=== PATIENT | male | born 1945 | race Caucasian/White ===

== ENCOUNTER 2019-03-17 10:12 | Inpatient (IN) ==
[2019-03-17] MEDS ORDERED: CEFEPIME 1,000 MG in SYRINGE 0 ML IV STA (10:26)
[2019-03-17] MEDS ORDERED: SODIUM CHLORIDE 0.9% 1000ML 2,000 ML IV ONE (10:30)
[2019-03-17 10:52] LABS: iSTAT Creatinine 4.6 mg/dl (0.6-1.3); iSTAT Hemoglobin 8.5 g/dl (14.0-18.0); iSTAT Ionized Calcium 1.15 mmol/l (1.12-1.32); iSTAT Potassium 4.6 mEq/L (3.3-5.0)
--- NOTE | 2019-03-17 11:06 | CT Scan Report ---
CT head/brain wo con CT DOSE: HISTORY: Postoperative change mental status. ams recetn surg TECHNIQUE: Multiaxial CT images of the head were performed without the use of intravenous contrast. A dose lowering technique was utilized adhering to the principles of ALARA. Comparison: None. Findings: The paranasal sinuses and mastoid air cells are clear. Findings of 2 tomás holes over the ri ght cerebral convexity. No evidence for drainage catheter. Right subdural hematoma with maximum thick ness of 8 mm. This may be subacute. Slight effacement of the sulci of the right cerebral hemisphere. Slight midline shift to the left of 3 mm. No evidence for parenchymal hemorrhagic component. Impression: 1. Small subacute right subdural hematoma having maximum thickness of 8 mm. 2. Slight effacement of the right cerebral sulci with midline shift to the left of 3 mm. 3. 2 operative burro holes over the right cerebral convexity The above report was generated using voice recognition software. It may contain grammatical, syntax or spelling errors. Electronically signed by: Paresh Dove M.D. 03/17/2019 11:04 AM
[2019-03-17 11:08] LABS: INR 1.1 (0.9-1.1); Partial Thromboplastin Ratio 1.1; Partial Thromboplastin Time 30.8 Seconds (21.0-31.0); Prothrombin Time 10.9 Seconds (9.0-12.0)
--- NOTE | 2019-03-17 11:09 | CT Scan Report ---
CT abd pelvis wo con CT DOSE: 1709.55 mGy.cm HISTORY: Mental status change ams TECHNIQUE: Multiaxial CT images of the abdomen and pelvis were performed without contrast. A dose lo wering technique was utilized adhering to the principles of ALARA. COMPARISON STUDY: None. FINDINGS: Interstitial prominence both lung bases. General configuration of liver spleen and pancreas is unremarkable. No significant gallbladder distention. Kidneys are considered negative for hydronephrosis. There are small exophytic hyperdense cysts involv ing the lower pole both kidneys. Nonobstructive bowel pattern. No free fluid within the pelvic cul-de-sac. The bladder is midline. There is a fat-containing left inguinal hernia. There is no evidence for bowel containment. 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 IMPRESSION: 1. No acute process in the abdomen or pelvis. 2. Minimal incidental findings as noted. 3. 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 The above report was generated using voice recognition software. It may contain grammatical, syntax or spelling errors. Electronically signed by: Paresh Dove M.D. 03/17/2019 11:08 AM
[2019-03-17 11:15] LABS: Albumin Level 2.5 gm/dl (3.4-5.0); BUN Creatinine Ratio 15.9 (10-20); Creatinine Clr Calc Pharmacy 18.4 ml/min; Est GFR (African American) 15.5; Est GFR (Non-African American) 13.4; Potassium 4.5 mmol/L (3.5-5.1)
[2019-03-17 11:16] LABS: Base Excess VBG 0.9 mEq/L; Oxygen Saturation VBG 61.2 %; pH VBG 7.37 (7.36-7.41)
[2019-03-17 11:18] LABS: Albumin Globulin Ratio 0.6 (0.9-2); Bilirubin,Total 0.7 mg/dl (0.2-1); Globulin 4.5 gm/dl (2.5-4.0)
[2019-03-17] MEDS ORDERED: VANCOMYCIN HCL 2,000 MG in SODIUM CHLORIDE 0.9% 500 ML IV ONE (11:21)
[2019-03-17] MEDS ORDERED: VANCOMYCIN CONSULT ACTIVE PRN (11:21)
[2019-03-17 11:29] LABS: Appearance Urine Cloudy (Clear); Bilirubin Urine Negative (Negative); Blood Urine Negative (Negative); Color Urine Yellow; Glucose Urine UA Negative (Negative); Ketones Urine Negative (Negative); Leukocyte Esterase Urine Negative (Negative); Nitrite Urine Negative (Negative); Protein Urine Negative (Negative); Specific Gravity Urine 1.017 (1.000-1.030); Urobilinogen Urine Negative (Negative)
[2019-03-17 11:41] LABS: Hematocrit (blood only) 29.3 % (42-52); Hemoglobin 9.4 g/dL (14.0-18.0); Mean Corpuscular Hgb Conc 32.1 g/dL (32-36); Mean Corpuscular Volume 93.6 fL (80-100); Mean Platelet Volume 10.9 fL (7.4-10.4); Nucleated RBC # (auto) 0.04 K/uL (0-0); Nucleated RBC % (auto) 0.7 %; Platelet Count 162 K/uL (130-400); RDW Coefficient of Variation 19.2 % (11.5-14.5); RDW Standard Deviation 64.5 fL (36.4-46.3); Red Blood Count 3.13 M/uL (4.7-6.1); White Blood Count 5.34 K/uL (4.8-10.8)
[2019-03-17 11:42] LABS: Agglutinated RBC 1+; Basophils # (auto) 0.03 K/uL (0-0.2); Basophils % (auto) 0.6 %; Eosinophils # (auto) 0.15 K/uL (0-0.5); Eosinophils % (auto) 2.8 %; Immature Granulocytes # (auto) 0.02 K/uL (0.00-0.02); Immature Granulocytes % (auto) 0.4 %; Lymphocytes # (auto) 1.67 K/uL (1.2-3.4); Lymphocytes % (auto) 31.3 %; Monocytes # (auto) 0.37 K/uL (0.11-0.59); Monocytes % (auto) 6.9 %
[2019-03-17 11:43] LABS: Bacteria Urine Automated 1+ (Negative)
--- NOTE | 2019-03-17 12:12 | XRay Report ---
XR chest 1V portable CLINICAL HISTORY: Sepsis dyspnea COMPARISON STUDY: No previous studies for comparison. FINDINGS: Mild cardiomegaly. Pulmonary vascular congestion. No well-defined focal infiltrate. Diaphra gms are smooth. IMPRESSION: Mild cardiomegaly. Pulmonary vascular congestion. The above report was generated using voice recognition software. It may contain grammatical, syntax or spelling errors. Electronically signed by: Paresh Dove M.D. 03/17/2019 12:11 PM
[2019-03-17] MEDS ORDERED: ICU PROTOCOL FOR HYPERGLYCEMIA PRN (13:22)
--- NOTE | 2019-03-17 13:51 | Critical Care Consultation ---
Date of Consultation March 17, 2019 Assessment & Plan (1) Admitted to intensive care unit: Mr. Victoriano Vinson is a 73 y/o with recent subdural hematoma evacuation who presents with sepsis and hypotension. Neuro: CT Head 1. Small subacute right subdural hematoma having maximum thickness of 8 mm. 2. Slight effacement of the right cerebral sulci with midline shift to the left of 3 mm. 3. 2 operative burro holes over the right cerebral convexity Cardiac/Vascular PMHx: CAD, CABG, HTN, HLD, aortic valve replacement Echocardiogram in ED * 1. Nml LV size; mild concentric LVH * 2. LVEF 55-60%; base to mid-inferior, inferolateral hypokinesis * 3. RV/RA mildy dilated; mild RV dysfunction * 4. No pericardial effusion * 5. Atrial septal aneurysm Holding home anti-hypertensives in setting of sepsis and hypotension Pulm Hx of COPD GI Renal/lytes Endo Heme ID Lines DVT ppx: SCDs Resuscitation status - DNR/DNI History of Present Illness Reason for Consultation: Sepsis History of Present Illness Mr. Victoriano Vinson is a 73 y/o male who comes from [facility] rehab facility presented to [facility] ED for concerns of sepsis. His history is complicated as recently discharged from [facility] [place] [facility] for rehab following drainage for a chronic subdural hematoma (03/06/19 at [facility]). He has a history of CABG (2000) and aortic valve replacement (2012) and sustained a fall hitting the left side of his head on 02/03/2019. He went for evaluation on 02/13/19 to [facility] because of headaches and was found to have on CT head 8mm subdural with 6.4mm of midline shift that was right-sided holohemispheric and subacute in nature. He was discharged home. He returned on 02/18/2019 for complaints of ataxia. Repeat CT scan showed a 10.3mm subdural with a 9.3mm midline shift. He was tehn taken to the OR for clot evacuation with right sided tomás holes for evacuation of subdural. Ct Head on 03/08/19 s/p evacuation showing residual right frontal subdural hematoma measuring up to 0.6cm, with resultant midline shift of 5mm. He was then discharged to [facility] for rehabilitation. Patient presented to [facility] today with concerns of sepsis. He was hypotensive. He has had AMS since evacuation of his subdural. There is concern for possible UTI as source versus possible surgical site infection from recent subdural evacuation. Patient's critically ill status was discussed with spouse and family, who elected to remain here at [facility] for treatment. They were offered option of seeking transfer to [facility] and it was explained that [facility] does not have neurosurgical intervention available. Family is aware of this. After discussion about code status, they did not want patient to be intubated as they note this would be against his wishes. Also, patient did nod head indicating no during discussion. Also, decision was made to forgo CPR in event of asystole. They would like to continue with treatment of sepsis with IV abx and central line access. Allergies Allergy/AdvReac Type Severity Reaction Status Date / Time Penicillins Allergy Verified 03/17/19 11:32 Sulfa (Sulfonamide Allergy Verified 03/17/19 11:32 Antibiotics) Home Medications Home Medications Medication Instructions Recorded Confirmed Type acetaminophen [Tylenol Extra 500 mg PO Q4H PRN 03/17/19 03/17/19 History Strength] albuterol sulfate 180 mcg INHALATION Q4H PRN 03/17/19 03/17/19 History allopurinol 300 mg PO DAILY 03/17/19 03/17/19 History carvedilol 12.5 mg PO BIDM 03/17/19 03/17/19 History clonazepam 0.5 mg PO BID 03/17/19 03/17/19 History docusate sodium [Colace] 100 mg PO BID 03/17/19 03/17/19 History enoxaparin [Lovenox] 30 mg SUBCUT Q12H 03/17/19 03/17/19 History fluticasone furoate-vilanterol 1 inh INHALATION DAILY 03/17/19 03/17/19 History isosorbide mononitrate 60 mg PO QAM 03/17/19 03/17/19 History levothyroxine 88 mcg PO 6XWK 03/17/19 03/17/19 History levothyroxine 176 mcg PO WK 03/17/19 03/17/19 History losartan 50 mg PO Q12 03/17/19 03/17/19 History melatonin 3 mg PO HS 03/17/19 03/17/19 History nitroglycerin [Nitrostat] 0.4 mg SUBLINGUAL Q5M PRN 03/17/19 03/17/19 History oxycodone 5 mg PO DAILY PRN 03/17/19 03/17/19 History pantoprazole 40 mg PO QAM 03/17/19 03/17/19 History paroxetine HCl 10 mg PO HS 03/17/19 03/17/19 History torsemide 100 mg PO DAILY 03/17/19 03/17/19 History umeclidinium 1 inh INHALATION DAILY 03/17/19 03/17/19 History Patient History Medical History Altered mental status (Acute) COPD (chronic obstructive pulmonary disease) Myocardial infarction CKD (chronic kidney disease) GERD (gastroesophageal reflux disease) Hyperthyroidism Surgical History Aortic valve replaced Hx of CABG Family History Other No pertinent family history Social History Preferred Language: Malagasy Communication Ability: Effective Visual Impairment: No Limitations Hearing Ability: Normal Current Living Situation: Skilled Nursing Current Living Situation Comment: [facility] Feels Safe at Home: Yes Smoking Status: Former smoker Review of Systems Review of Systems: Unobtainable due to cognitive status Physical Exam Constitutional: Caveat: physical exam limited by altered mental status; spouse and family members are historians. Eyes: EOM intact bilaterally ENMT: ledy to right parietal area consistent with s/p tomás holes are intact; there is mild swelling to posterior staple area but doesn't appear to be any sign of infection; left frontal scalp with hematoma Neck: normal visual inspection and trachea midline Gastrointestinal (Abdomen): Percussion/Palpation: abdomen nontender Results & Data Vital Signs (Past 12 Hours) Vital Signs Temp Pulse Pulse Resp BP BP Pulse Ox 03/17/19 13:12 91 H 17 85/54 L 92 03/17/19 13:00 83 17 85/54 L 03/17/19 12:50 95 H 16 03/17/19 12:45 94 H 21 78/67 L 03/17/19 12:40 88 16 03/17/19 12:30 80 18 80/56 L 03/17/19 12:20 85 17 03/17/19 12:15 85 14 87/45 L 03/17/19 12:10 92 H 19 03/17/19 12:07 90 19 85/39 L 03/17/19 12:04 84 21 71/44 L 03/17/19 12:00 90 16 71/44 L 03/17/19 11:56 92 H 18 82/48 L 03/17/19 11:54 96 H 15 65/50 L 03/17/19 11:50 107 H 17 03/17/19 11:45 103 H 16 91 03/17/19 11:43 88 18 94 03/17/19 11:40 94 H 14 92 03/17/19 11:32 90 19 88/50 L 99 03/17/19 11:30 92 H 13 98 03/17/19 11:20 87 22 93 03/17/19 11:10 117 H 20 94 03/17/19 11:05 89 21 95 03/17/19 11:03 87 15 111/60 92 03/17/19 10:49 97 03/17/19 10:48 38.2 C H 98 H 16 82/46 L 99 03/17/19 10:45 38.2 C H 03/17/19 10:41 93 H 13 84/65 L 97 03/17/19 10:40 94 H 16 93 03/17/19 10:32 37.2 C 98 H 16 76/56 L 98 03/17/19 10:31 97 H 15 170/122 H 89 L 03/17/19 10:30 97 H 16 96 03/17/19 10:26 97 H 16 88 L 03/17/19 10:20 99 H 14 76/56 L 89 L 03/17/19 10:17 98 H 15 177/158 H 84 L Laboratory Results Laboratory Results - last 24 hr 03/17/19 03/17/19 03/17/19 10:37 10:37 10:37 WBC 5.34 RBC 3.13 L Hgb 9.4 L POC Hgb Hct 29.3 L POC Hct MCV 93.6 MCH 30.0 MCHC 32.1 RDW Std Deviation 64.5 H RDW Coeff of Stephane 19.2 H Plt Count 162 MPV 10.9 H Immature Gran % (Auto) 0.4 Neut % (Auto) 58.0 Lymph % (Auto) 31.3 [place] % (Auto) 6.9 Eos % (Auto) 2.8 Baso % (Auto) 0.6 Immature Gran # (Auto) 0.02 Neut # (Auto) 3.10 Lymph # (Auto) 1.67 [place] # (Auto) 0.37 Eos # (Auto) 0.15 Baso # (Auto) 0.03 Absolute Nucleated RBC 0.04 H Nucleated RBC % (auto) 0.7 RBC Agglutinates 1+ PT 10.9 INR 1.1 APTT 30.8 PTT Ratio 1.1 VBG pH VBG pCO2 VBG pO2 VBG HCO3 VBG O2 Saturation VBG Base Excess Barometric Pressure POC Sodium Sodium 135 L POC Potassium Potassium 4.5 POC Chloride Chloride 97 L Carbon Dioxide 26 POC Total CO2 Anion Gap 12.0 H POC Anion Gap POC BUN BUN 67 H Creatinine 4.18 H POC Creatinine Est Cr Clr Drug Dosing 18.4 Est GFR ( Amer) 15.5 Est GFR (Non-Af Amer) 13.4 BUN/Creatinine Ratio 15.9 Glucose 96 POC Glucose (other) Lactate Calcium 9.0 POC Ioniz Calcium [place] Total Bilirubin 0.7 AST 27 ALT 55 Alkaline Phosphatase 93 Total Protein 7.0 Albumin 2.5 L Globulin 4.5 H Albumin/Globulin Ratio 0.6 L Procalcitonin Urine Color Urine Appearance Urine pH Ur Specific [place] Urine Protein Urine Glucose (UA) Urine Ketones Urine Blood Urine Nitrite Urine Bilirubin Urine Urobilinogen Ur Leukocyte Esterase Urine WBC (Auto) Urine RBC (Auto) U Hyaline Cast (Auto) U Epithel Cells (Auto) Urine Bacteria (Auto) 03/17/19 03/17/19 03/17/19 10:37 10:37 10:37 WBC RBC Hgb POC Hgb Hct POC Hct MCV MCH MCHC RDW Std Deviation RDW Coeff of Stephane Plt Count MPV Immature Gran % (Auto) Neut % (Auto) Lymph % (Auto) [place] % (Auto) Eos % (Auto) Baso % (Auto) Immature Gran # (Auto) Neut # (Auto) Lymph # (Auto) [place] # (Auto) Eos # (Auto) Baso # (Auto) Absolute Nucleated RBC Nucleated RBC % (auto) RBC Agglutinates PT INR APTT PTT Ratio VBG pH 7.37 VBG pCO2 47 VBG pO2 31 VBG HCO3 27 VBG O2 Saturation 61.2 VBG Base Excess 0.9 Barometric Pressure 733.2 POC Sodium Sodium POC Potassium Potassium POC Chloride Chloride Carbon Dioxide POC Total CO2 Anion Gap POC Anion Gap POC BUN BUN Creatinine POC Creatinine Est Cr Clr Drug Dosing Est GFR ( Amer) Est GFR (Non-Af Amer) BUN/Creatinine Ratio Glucose POC Glucose (other) Lactate 1.2 Calcium POC Ioniz Calcium [place] Total Bilirubin AST ALT Alkaline Phosphatase Total Protein Albumin Globulin Albumin/Globulin Ratio Procalcitonin 0.44 Urine Color Urine Appearance Urine pH Ur Specific [place] Urine Protein Urine Glucose (UA) Urine Ketones Urine Blood Urine Nitrite Urine Bilirubin Urine Urobilinogen Ur Leukocyte Esterase Urine WBC (Auto) Urine RBC (Auto) U Hyaline Cast (Auto) U Epithel Cells (Auto) Urine Bacteria (Auto) 03/17/19 03/17/19 10:39 11:05 WBC RBC Hgb POC Hgb 8.5 L Hct POC Hct 25 L MCV MCH MCHC RDW Std Deviation RDW Coeff of Stephane Plt Count MPV Immature Gran % (Auto) Neut % (Auto) Lymph % (Auto) [place] % (Auto) Eos % (Auto) Baso % (Auto) Immature Gran # (Auto) Neut # (Auto) Lymph # (Auto) [place] # (Auto) Eos # (Auto) Baso # (Auto) Absolute Nucleated RBC Nucleated RBC % (auto) RBC Agglutinates PT INR APTT PTT Ratio VBG pH VBG pCO2 VBG pO2 VBG HCO3 VBG O2 Saturation VBG Base Excess Barometric Pressure POC Sodium 132 L Sodium POC Potassium 4.6 Potassium POC Chloride 98 L Chloride Carbon Dioxide POC Total CO2 25 Anion Gap POC Anion Gap 15.0 L POC BUN 72 H BUN Creatinine POC Creatinine 4.6 H* Est Cr Clr Drug Dosing Est GFR ( Amer) Est GFR (Non-Af Amer) BUN/Creatinine Ratio Glucose POC Glucose (other) 100 H Lactate Calcium POC Ioniz Calcium [place] 1.15 Total Bilirubin AST ALT Alkaline Phosphatase Total Protein Albumin Globulin Albumin/Globulin Ratio Procalcitonin Urine Color Yellow Urine Appearance Cloudy A Urine pH 5.0 Ur Specific [place] 1.017 Urine Protein Negative Urine Glucose (UA) Negative Urine Ketones Negative Urine Blood Negative Urine Nitrite Negative Urine Bilirubin Negative Urine Urobilinogen Negative Ur Leukocyte Esterase Negative Urine WBC (Auto) 1-5 Urine RBC (Auto) 10-30 H U Hyaline Cast (Auto) 1-5 U Epithel Cells (Auto) 10-20 H Urine Bacteria (Auto) 1+ H
[2019-03-17] MEDS ORDERED: NOREPINEPHRINE BIT INJ 8 MG in DEXTROSE 5% 500 ML IV STA (14:09)
[2019-03-17] MEDS ORDERED: NOREPINEPHRINE BIT INJ 4 MG in DEXTROSE 5% 250 ML IV SCH (14:15)
[2019-03-17] MEDS ORDERED: ALBUTEROL HFA 8 GM INHALER INH PRN (14:52)
--- NOTE | 2019-03-17 14:56 | Critical Care Consultation ---
Date of Consultation March 17, 2019 Assessment & Plan (1) Admitted to intensive care unit: Mr. Victoriano Vinson is a 73 y/o with recent subdural hematoma evacuation who presents with sepsis and hypotension. Neuro: CT Head 1. Small subacute right subdural hematoma having maximum thickness of 8 mm. 2. Slight effacement of the right cerebral sulci with midline shift to the left of 3 mm. 3. 2 operative burro holes over the right cerebral convexity - altered mental status most likely from recent head injury Cardiac/Vascular PMHx: CAD, CABG, HTN, HLD, aortic valve replacement Echocardiogram in ED * 1. Nml LV size; mild concentric LVH * 2. LVEF 55-60%; base to mid-inferior, inferolateral hypokinesis * 3. RV/RA mildy dilated; mild RV dysfunction * 4. No pericardial effusion * 5. Atrial septal aneurysm Holding home anti-hypertensives in setting of sepsis and hypotension Pulm Hx of COPD Supplemental O2 NC Albuterol PRN GI: - currently NPO pending ICU procedures Renal/lytes Creatinine is elevated at 4.18 which is up from review of [facility] where values appeared baseline 1.5 with highest value 2.0, supportine ANUJA on CKD. Nephology consult placed - patient became agitated with insertion of magaña in ED, which raises suspicion for prostatitis or urinary tract source of infection Endo - AG = 12 - Hyponatremic slightly at 135, will trend - No history of DM - Hypothyroidism - continue with home Synthroid Heme - WBC WNL - Hgb - 9.4, no current signs of active bleeding - Platelets WNL ID - continue with home Cefepime for suspicion for infection DVT ppx: SCDs Resuscitation status - DNR/DNI Supervising Physician Co-Signing Physician Notes Dr. Acosta was resident physician during care of patient. I separately evaluated patient for lundberg portions of the history and the exam. I was present during the critical portion of medical decision making, and I discussed the case with the resident. I generally agree with the findings and plan. Patient critically ill due to hypotension, ANUJA, concern for sepsis. Patient does not have an oxygen requirement most likely source is urine. We have also considered intracranial source however his wounds appear clean dry and intact without any significant swelling, no erythema and no purulence able to be expressed from the wound margins. An extensive discussion with the patient's family and advised we do not have neurosurgical back-up. I offered transfer to [facility]. Family preferred to keep the patient close in this institution and continue with medical management unless there appears to be acute worsening which would require surgical intervention. He had a CT scan which demonstrated a interval decrease in subdural hematoma as reported by Dr. Ni. I discussed risks and benefits of obtaining CSF specimen, I believe at this point there is no meningismus signs and the risks of lumbar puncture are necessarily precluded by the benefits and will continue with antibiotic administration. Family reports that the patient received an and out cath x2 while at [facility] and patient has significant discomfort with Magaña catheter in the emergency department, therefore, I believe he has bladder versus prostate irritation which is most likely a source. I have personally spent 70 minutes of critical care time in the direct management of this patient. This is a life/limb threatening event. This includes time spent evaluating patient, direct bedside care, chart review, placing orders, interpretation of diagnostic studies, discussion with consultants, patient, and/or family members regarding treatment decisions, as we ll as other required patient management activities. This time is exclusive of all separately billable procedures, and teaching time and separate from and in addition to any other critical care service time. History of Present Illness Reason for Consultation: Sepsis Attending Physician: Monica Lau History of Present Illness Mr. Victoriano Vinson is a 73 y/o male who comes from [facility] rehab facility presented to [facility] ED for concerns of sepsis. His history is complicated as recently discharged from [facility] to [facility] for rehab following drainage for a chronic subdural hematoma (03/06/19 at [facility]). He has a history of CABG (2000) and aortic valve replacement (2012) and sustained a fall hitting the left side of his head on 02/03/2019. He went for evaluation on 02/13/19 to [facility] because of headaches and was found to have on CT head 8mm subdural with 6.4mm of midline shift that was right-sided holohemispheric and subacute in nature. He was discharged home. He returned on 02/18/2019 for complaints of ataxia. Repeat CT scan showed a 10.3mm subdural with a 9.3mm midline shift. He was tehn taken to the OR for clot evacuation with right sided tomás holes for evacuation of subdural. Ct Head on 03/08/19 s/p evacuation showing residual right frontal subdural hematoma measuring up to 0.6cm, with resultant midline shift of 5mm. He was then discharged to [facility] for rehabilitation. Patient presented to [facility] today with concerns of sepsis. He was hypotensive. He has had AMS since evacuation of his subdural. There is concern for possible UTI as source versus possible surgical site infection from recent subdural evacuation. Patient's critically ill status was discussed with spouse and family, who elected to remain here at [facility] for treatment. They were offered option of seeking transfer to [facility] and it was explained that [facility] does not have neurosurgical intervention available. Family is aware of this. After discussion about code status, they did not want patient to be intubated as they note this would be against his wishes. Also, patient did nod head indicating no during discussion. Also, decision was made to forgo CPR in event of asystole. They would like to continue with treatment of sepsis with IV abx and central line access. Allergies Allergy/AdvReac Type Severity Reaction Status Date / Time Penicillins Allergy Verified 03/17/19 11:32 Sulfa (Sulfonamide Allergy Verified 03/17/19 11:32 Antibiotics) Home Medications Home Medications Medication Instructions Recorded Confirmed Type acetaminophen [Tylenol Extra 500 mg PO Q4H PRN 03/17/19 03/17/19 History Strength] albuterol sulfate 180 mcg INHALATION Q4H PRN 03/17/19 03/17/19 History allopurinol 300 mg PO DAILY 03/17/19 03/17/19 History carvedilol 12.5 mg PO BIDM 03/17/19 03/17/19 History clonazepam 0.5 mg PO BID 03/17/19 03/17/19 History docusate sodium [Colace] 100 mg PO BID 03/17/19 03/17/19 History enoxaparin [Lovenox] 30 mg SUBCUT Q12H 03/17/19 03/17/19 History fluticasone furoate-vilanterol 1 inh INHALATION DAILY 03/17/19 03/17/19 History isosorbide mononitrate 60 mg PO QAM 03/17/19 03/17/19 History levothyroxine 88 mcg PO 6XWK 03/17/19 03/17/19 History levothyroxine 176 mcg PO WK 03/17/19 03/17/19 History losartan 50 mg PO Q12 03/17/19 03/17/19 History melatonin 3 mg PO HS 03/17/19 03/17/19 History nitroglycerin [Nitrostat] 0.4 mg SUBLINGUAL Q5M PRN 03/17/19 03/17/19 History oxycodone 5 mg PO DAILY PRN 03/17/19 03/17/19 History pantoprazole 40 mg PO QAM 03/17/19 03/17/19 History paroxetine HCl 10 mg PO HS 03/17/19 03/17/19 History torsemide 100 mg PO DAILY 03/17/19 03/17/19 History umeclidinium 1 inh INHALATION DAILY 03/17/19 03/17/19 History Patient History Medical History Altered mental status (Acute) COPD (chronic obstructive pulmonary disease) Myocardial infarction CKD (chronic kidney disease) GERD (gastroesophageal reflux disease) Hyperthyroidism Surgical History Aortic valve replaced Hx of CABG Family History Other No pertinent family history Social History Preferred Language: Gambian Communication Ability: Effective Visual Impairment: No Limitations Hearing Ability: Normal Toll Mechanic Required: No Beliefs That Will Affect Care: None Current Living Situation: Rehab Current Living Situation Comment: [facility] Other Information That Helps Us Care for You: No Feels Safe at Home: Yes Safety Concerns: Feels Safe At This Time Smoking Status: Former smoker Hx Alcohol Use: No Hx Substance Use: No Review of Systems Review of Systems: Unobtainable due to cognitive status (AMS) Physical Exam Eyes: EOM intact bilaterally Neck: normal visual inspection and trachea midline Respiratory: normal respiratory effort; no respiratory distress Cardiovascular: Rate/Rhythm: regular rate and regular rhythm Extremities: no pedal edema Gastrointestinal (Abdomen): Percussion/Palpation: abdomen nontender mild small ecchymosis to right abdomen Musculoskeletal: right parietal scalp with ledy intact in two areas adjacent consistent with recent tomás holes for evacuation of sudural hematoma; there does not appear to be any signs of infection, area with posterior ledy does have some mild swelling; left lateral frontal hematoma Skin: no rashes, warm and dry Neurologic: unable to accurately assess secondary to AMS Results & Data Vital Signs (Past 12 Hours) Vital Signs Temp Pulse Pulse Resp BP BP Pulse Ox 03/17/19 14:31 87 17 91/56 L 95 03/17/19 14:16 87 24 95/74 L 03/17/19 14:10 97 03/17/19 14:02 85 18 95 03/17/19 14:01 86 21 74/55 L 97 03/17/19 14:00 85 25 H 03/17/19 13:58 82 16 66/45 L 93 03/17/19 13:50 19 91 03/17/19 13:45 19 52/44 L 92 03/17/19 13:40 80 20 94 03/17/19 13:35 79 21 87/53 L 92 03/17/19 13:32 85 17 35/25 L 95 03/17/19 13:30 90 28 H 89 L 03/17/19 13:20 92 H 19 93 03/17/19 13:15 98 H 16 92/66 L 92 03/17/19 13:12 91 H 17 85/54 L 92 03/17/19 13:10 88 19 03/17/19 13:00 83 17 85/54 L 03/17/19 12:50 95 H 16 03/17/19 12:45 94 H 21 78/67 L 03/17/19 12:40 88 16 03/17/19 12:30 80 18 80/56 L 03/17/19 12:20 85 17 03/17/19 12:15 85 14 87/45 L 03/17/19 12:10 92 H 19 03/17/19 12:07 90 19 85/39 L 03/17/19 12:04 84 21 71/44 L 03/17/19 12:00 90 16 71/44 L 03/17/19 11:56 92 H 18 82/48 L 03/17/19 11:54 96 H 15 65/50 L 03/17/19 11:50 107 H 17 03/17/19 11:45 103 H 16 91 03/17/19 11:43 88 18 94 03/17/19 11:40 94 H 14 92 03/17/19 11:32 90 19 88/50 L 99 03/17/19 11:30 92 H 13 98 03/17/19 11:20 87 22 93 03/17/19 11:10 117 H 20 94 03/17/19 11:05 89 21 95 03/17/19 11:03 87 15 111/60 92 03/17/19 10:49 97 03/17/19 10:48 38.2 C H 98 H 16 82/46 L 99 03/17/19 10:45 38.2 C H 03/17/19 10:41 93 H 13 84/65 L 97 03/17/19 10:40 94 H 16 93 03/17/19 10:32 37.2 C 98 H 16 76/56 L 98 03/17/19 10:31 97 H 15 170/122 H 89 L 03/17/19 10:30 97 H 16 96 03/17/19 10:26 97 H 16 88 L 03/17/19 10:20 99 H 14 76/56 L 89 L 03/17/19 10:17 98 H 15 177/158 H 84 L PG Care Time/CCT Total # of Minutes Spent Total Time Spent with Patient: Total time spent is greater than 50% in coordination of care (as documented) at patient's floor/unit and/or counseling patient: Resident Activity Tracking Resident Involvement: Resident Care Provided Care Provided: Adult Hospital Medicine (ICU)
[2019-03-17] MEDS ORDERED: NOREPINEPHRINE BIT INJ 8 MG in DEXTROSE 5% 500 ML IV PRN (15:15)
--- NOTE | 2019-03-17 15:37 | History & Physical Report ---
Date of Service March 17, 2019 Assessment & Plan (1) Sepsis: (2) Septic shock: (3) Hypotension: (4) Altered mental status: (5) COPD (chronic obstructive pulmonary disease): (6) Aortic valve replaced: (7) Hx of CABG: (8) CKD (chronic kidney disease): (9) GERD (gastroesophageal reflux disease): Patient was admitted to the ICU, he is a DNR/DNI, IV antibiotics, currently on pressors, monitor daily labs, continue appropriate patient medications. Currently on vancomycin and cefepime. ROS-offers no reliable review of systems Physical Exam Gen-AAO x 1, NAD, Afebrile, agitated, obese Head-craniotomy holes with bleeding, EOMI, PERRLA, Anicteric Sclera, No Posterior Pharyngeal Erythema Neck-Supple, No JVD, No Thyromegaly, No Masses, No LAD, No Bruits Lungs-Clear to Auscultation Bilaterally, No Rales, No Rhonchi, No Wheezing, No Crepitus Chest-No S4, +S1, +S2, No S3, No Murmurs, No Rubs, No Gallops, No Ectopy Abdomen-Soft, Bowel Sounds Present, Non Tender, Non Distended, No Hepatomegaly, No Splenomegaly, No Palpable Masses, No Rebound, No Rigidity, No Guarding Musculoskeletal-Full Range of Motion Bilaterally, No CVAT Extremities-No Cyanosis, No Clubbing, No Edema Nuero-Cranial Nerves II-XII grossly intact, Motor WNL, DTRs WNL, Strength WNL, Non Focal Psych-agitated History of Present Illness 73-year-old male with a past medical history of coronary artery disease, valvular heart disease, acute PA x2, hypertension, hyperlipidemia, microscopic polyangiitis, CKD, hypothyroidism, and anxiety presents to the emergency room today from [facility]. He was at [facility] for rehab. He fell in January 2019 but did not go to the emergency room right away. He fell again on the and went to [facility] twice and was flown to [place] twice, the second time he was flown to [place], he went to the OR secondary to the subdural hematoma which was evacuated with a craniotomy. He was discharged to [facility] on the . Yesterday his family visited him and he was off according to the family. He was sleepy and not eating, and labored breathing. Today he was relatively unresponsive, continue to have labored labored breathing and he was sent to our ER for evaluation. In the ER he was hypotensive consistent with septic shock and he will be admitted to the ICU. His family provided the history, but he does follow some commands and he is a little agitated. Past medical historycoronary artery disease, valvular heart disease, acute PA x2, hypertension, hyperlipidemia, microscopic polyangiitis, CKD, hypothyroidism, and anxiety Past surgical historyCABG, valve replacement, tissue valve, appendectomy, hernia surgery, craniotomy Allergies are sulfa and penicillin Family historymother of coronary disease, father of stomach cancer Social historyformer smoker quit in 2000, no drugs or alcohol, used to work making cabinets Primary Care Provider: [facility] Allergies Allergy/AdvReac Type Severity Reaction Status Date / Time Penicillins Allergy Verified 03/17/19 11:32 Sulfa (Sulfonamide Allergy Verified 03/17/19 11:32 Antibiotics) Home Medications Home Medications Medication Instructions Recorded Confirmed Type acetaminophen [Tylenol Extra 500 mg PO Q4H PRN 03/17/19 03/17/19 History Strength] albuterol sulfate 180 mcg INHALATION Q4H PRN 03/17/19 03/17/19 History allopurinol 300 mg PO DAILY 03/17/19 03/17/19 History carvedilol 12.5 mg PO BIDM 03/17/19 03/17/19 History clonazepam 0.5 mg PO BID 03/17/19 03/17/19 History docusate sodium [Colace] 100 mg PO BID 03/17/19 03/17/19 History enoxaparin [Lovenox] 30 mg SUBCUT Q12H 03/17/19 03/17/19 History fluticasone furoate-vilanterol 1 inh INHALATION DAILY 03/17/19 03/17/19 History isosorbide mononitrate 60 mg PO QAM 03/17/19 03/17/19 History levothyroxine 88 mcg PO 6XWK 03/17/19 03/17/19 History levothyroxine 176 mcg PO WK 03/17/19 03/17/19 History losartan 50 mg PO Q12 03/17/19 03/17/19 History melatonin 3 mg PO HS 03/17/19 03/17/19 History nitroglycerin [Nitrostat] 0.4 mg SUBLINGUAL Q5M PRN 03/17/19 03/17/19 History oxycodone 5 mg PO DAILY PRN 03/17/19 03/17/19 History pantoprazole 40 mg PO QAM 03/17/19 03/17/19 History paroxetine HCl 10 mg PO HS 03/17/19 03/17/19 History torsemide 100 mg PO DAILY 03/17/19 03/17/19 History umeclidinium 1 inh INHALATION DAILY 03/17/19 03/17/19 History Past Med/Surg History Medical History Altered mental status (Acute) COPD (chronic obstructive pulmonary disease) Myocardial infarction CKD (chronic kidney disease) GERD (gastroesophageal reflux disease) Hyperthyroidism Surgical History Aortic valve replaced Hx of CABG Family History Other No pertinent family history Social History Preferred Language: Maltese Communication Ability: Effective Visual Impairment: No Limitations Hearing Ability: Normal President And Chief Operating Officer Required: No Beliefs That Will Affect Care: None Current Living Situation: Rehab [facility] Other Information That Helps Us Care for You: No Feels Safe at Home: Yes Safety Concerns: Feels Safe At This Time Smoking Status: Former smoker Hx Alcohol Use: No Hx Substance Use: No Results & Data Vital Signs (Past 12 Hours) Vital Signs Temp Pulse Pulse Resp BP BP Pulse Ox 03/17/19 14:54 37 C 86 16 130/75 95 03/17/19 14:31 87 17 91/56 L 95 03/17/19 14:16 87 24 95/74 L 03/17/19 14:10 97 03/17/19 14:02 85 18 95 03/17/19 14:01 86 21 74/55 L 97 03/17/19 14:00 85 25 H 03/17/19 13:58 82 16 66/45 L 93 03/17/19 13:50 19 91 03/17/19 13:45 19 52/44 L 92 03/17/19 13:40 80 20 94 03/17/19 13:35 79 21 87/53 L 92 03/17/19 13:32 85 17 35/25 L 95 03/17/19 13:30 90 28 H 89 L 03/17/19 13:20 92 H 19 93 03/17/19 13:15 98 H 16 92/66 L 92 03/17/19 13:12 91 H 17 85/54 L 92 03/17/19 13:10 88 19 03/17/19 13:00 83 17 85/54 L 03/17/19 12:50 95 H 16 03/17/19 12:45 94 H 21 78/67 L 03/17/19 12:40 88 16 03/17/19 12:30 80 18 80/56 L 03/17/19 12:20 85 17 03/17/19 12:15 85 14 87/45 L 03/17/19 12:10 92 H 19 03/17/19 12:07 90 19 85/39 L 03/17/19 12:04 84 21 71/44 L 03/17/19 12:00 90 16 71/44 L 03/17/19 11:56 92 H 18 82/48 L 03/17/19 11:54 96 H 15 65/50 L 03/17/19 11:50 107 H 17 03/17/19 11:45 103 H 16 91 03/17/19 11:43 88 18 94 03/17/19 11:40 94 H 14 92 03/17/19 11:32 90 19 88/50 L 99 03/17/19 11:30 92 H 13 98 03/17/19 11:20 87 22 93 03/17/19 11:10 117 H 20 94 03/17/19 11:05 89 21 95 03/17/19 11:03 87 15 111/60 92 03/17/19 10:49 97 03/17/19 10:48 38.2 C H 98 H 16 82/46 L 99 03/17/19 10:45 38.2 C H 03/17/19 10:41 93 H 13 84/65 L 97 03/17/19 10:40 94 H 16 93 03/17/19 10:32 37.2 C 98 H 16 76/56 L 98 03/17/19 10:31 97 H 15 170/122 H 89 L 03/17/19 10:30 97 H 16 96 03/17/19 10:26 97 H 16 88 L 03/17/19 10:20 99 H 14 76/56 L 89 L 03/17/19 10:17 98 H 15 177/158 H 84 L Allergies Penicillins Allergy (Verified 03/17/19 11:32) Sulfa (Sulfonamide Antibiotics) Allergy (Verified 03/17/19 11:32) Height/Weight/Isolation Height 5 ft 8 in Weight 96.2 kg Chemistry 03/17/19 10:37 Sodium 135 L Potassium 4.5 Chloride 97 L Carbon Dioxide 26 Anion Gap 12.0 H BUN 67 H Creatinine 4.18 H Glucose 96 Urinalysis 03/17/19 11:05 Urine Color Yellow Urine Appearance Cloudy A Urine pH 5.0 Ur Specific [place] 1.017 Urine Protein Negative Urine Glucose (UA) Negative Urine Ketones Negative Urine Blood Negative Urine Nitrite Negative Urine Bilirubin Negative Microbiology 03/17/19 11:05 Urine,Indwelling Cath Urine Culture - Pending 03/17/19 10:25 Blood Aerobic Blood Culture - Pending 03/17/19 10:25 Blood Anaerobic Blood Culture - Pending 03/17/19 10:30 Blood Aerobic Blood Culture - Pending 03/17/19 10:30 Blood Anaerobic Blood Culture - Pending Code Status & VTE Plan Code Status DNR VTE Prophylaxis Plan VTE Prophylaxis will be ordered: No Reason for no VTE drug order: Contraindicated (1) Sepsis Sepsis type: sepsis due to unspecified organism Qualified Code(s): A41.9 - Sepsis, unspecified organism (2) Hypotension Hypotension type: unspecified hypotension type Qualified Code(s): I95.9 - Hypotension, unspecified (3) Altered mental status Altered mental status type: unspecified Qualified Code(s): R41.82 - Altered mental status, unspecified
--- NOTE | 2019-03-17 15:49 | Pharmacy Report ---
Pharmacy Abx Initial Consult - Date of Service March 17, 2019 - Pharmacy Dosing Scope Date of Consult: 03/17/19 Consultation requested by: Dr. Acosta Pharmacy is consulted to initiate Vancomycin IV dosing therapy, order appropriate labs and adjust drug dose/frequency. - Subjective The patient is a 73 year old M admitted on 03/17/19 13:23. - Objective Height: 5 ft 8 in Weight: 96.2 kg Vital Signs (Past 12hrs): Vital Signs Temp Pulse Pulse Resp BP BP Pulse Ox 03/17/19 14:54 37 C 86 16 130/75 95 03/17/19 14:31 87 17 91/56 L 95 03/17/19 14:16 87 24 95/74 L 03/17/19 14:10 97 03/17/19 14:02 85 18 95 03/17/19 14:01 86 21 74/55 L 97 03/17/19 14:00 85 25 H 03/17/19 13:58 82 16 66/45 L 93 03/17/19 13:50 19 91 03/17/19 13:45 19 52/44 L 92 03/17/19 13:40 80 20 94 03/17/19 13:35 79 21 87/53 L 92 03/17/19 13:32 85 17 35/25 L 95 03/17/19 13:30 90 28 H 89 L 03/17/19 13:20 92 H 19 93 03/17/19 13:15 98 H 16 92/66 L 92 03/17/19 13:12 91 H 17 85/54 L 92 03/17/19 13:10 88 19 03/17/19 13:00 83 17 85/54 L 03/17/19 12:50 95 H 16 03/17/19 12:45 94 H 21 78/67 L 03/17/19 12:40 88 16 03/17/19 12:30 80 18 80/56 L 03/17/19 12:20 85 17 03/17/19 12:15 85 14 87/45 L 03/17/19 12:10 92 H 19 03/17/19 12:07 90 19 85/39 L 03/17/19 12:04 84 21 71/44 L 03/17/19 12:00 90 16 71/44 L 03/17/19 11:56 92 H 18 82/48 L 03/17/19 11:54 96 H 15 65/50 L 03/17/19 11:50 107 H 17 03/17/19 11:45 103 H 16 91 03/17/19 11:43 88 18 94 03/17/19 11:40 94 H 14 92 03/17/19 11:32 90 19 88/50 L 99 03/17/19 11:30 92 H 13 98 03/17/19 11:20 87 22 93 03/17/19 11:10 117 H 20 94 03/17/19 11:05 89 21 95 03/17/19 11:03 87 15 111/60 92 03/17/19 10:49 97 03/17/19 10:48 38.2 C H 98 H 16 82/46 L 99 03/17/19 10:45 38.2 C H 03/17/19 10:41 93 H 13 84/65 L 97 03/17/19 10:40 94 H 16 93 03/17/19 10:32 37.2 C 98 H 16 76/56 L 98 03/17/19 10:31 97 H 15 170/122 H 89 L 03/17/19 10:30 97 H 16 96 03/17/19 10:26 97 H 16 88 L 03/17/19 10:20 99 H 14 76/56 L 89 L 03/17/19 10:17 98 H 15 177/158 H 84 L Lab Results (24hrs): Laboratory Tests (24 Hours) 03/17/19 03/17/19 03/17/19 10:37 10:37 10:37 WBC 5.34 Neut # (Auto) 3.10 Creatinine 4.18 H Est Cr Clr Drug Dosing 18.4 Procalcitonin 0.44 Micro Results: 03/17/19 11:05 Urine Culture - Pending Urine,Indwelling Cath 03/17/19 10:25 Aerobic Blood Culture - Pending Blood Anaerobic Blood Culture - Pending 03/17/19 10:30 Aerobic Blood Culture - Pending Blood Anaerobic Blood Culture - Pending - Risk Factors for Resistance * At [facility] prior to admission * Hospitalization for 48 hours or more within the past 90 days - Assessment & Plan Assessment 73 year old M admitted from [facility] for sepsis secondary to UTI vs surgical site infection PMH is pertinent for subdural hematoma evacuation (02/24/19), AVR (2012), and CKD Records obtained from [facility] show a serum creatinine of 1.6 on 03/12/19 (4.18 on admission today) Plan IV Vancomycin for treatment of Sepsis Vancomycin IV * Estimated PK Parameters: Vd 0.7 L/kg, Jose 0.020 hr-1, t1/2 ~35 hrs * Loading dose: 2000 mg (~21 mg/kg) * Maintenance dose: None at this time * Goal trough level for Sepsis: 15 to 20 mcg/mL * Random level ordered for 03/18/19 with AM labs * An extended dosing interval has been selected due to likelihood of drug accumulation in patient with h/o CKD. Pharmacy will continue to follow and will adjust dose/frequency as necessary. Thank you.
--- NOTE | 2019-03-17 17:04 | Emergency Department Note ---
Entered by Abby Rivers acting as a scribe for History of Present Illness General Chief complaint: Altered Mental Status Source: patient, EMS and RN notes reviewed Mode of arrival: EMS Limitations: altered mental status History of Present Illness Onset (ago): day(s) 2 Location: head (AMS) Pain Consistency: + constant Quality: + other (AMS) Associated symptoms: + other (The patient complains of altered mental status. The patient denies abdominal pain. ); no chest pain The HPI is limited secondary to altered mental status. The patient is a 73 year old male with a history of COPD, aortic valve replacement, CABG, AR, CKD, GERD, and hyperthyroidism who presents to the ED via EMS with complaints of constant altered mental status that onset 2 days ago. Per nursing staff, the patient presents from [facility] due to a fall on February 03. Per note, the patient was diagnosed with a subdural bleed after this fall. On February 14, the patient had a tomás hole and a hematoma evacuation. They state that the patient has been AMS between yesterday and today. The patient is able to state his name and that he is in the hospital. The patient denies chest pain and abdominal pain. Patient is currently a full code. Home Medications Home Medications Medication Instructions Recorded Confirmed Type acetaminophen [Tylenol Extra 500 mg PO Q4H PRN 03/17/19 03/17/19 History Strength] albuterol sulfate 180 mcg INHALATION Q4H PRN 03/17/19 03/17/19 History allopurinol 300 mg PO DAILY 03/17/19 03/17/19 History carvedilol 12.5 mg PO BIDM 03/17/19 03/17/19 History clonazepam 0.5 mg PO BID 03/17/19 03/17/19 History docusate sodium [Colace] 100 mg PO BID 03/17/19 03/17/19 History enoxaparin [Lovenox] 30 mg SUBCUT Q12H 03/17/19 03/17/19 History fluticasone furoate-vilanterol 1 inh INHALATION DAILY 03/17/19 03/17/19 History isosorbide mononitrate 60 mg PO QAM 03/17/19 03/17/19 History levothyroxine 88 mcg PO 6XWK 03/17/19 03/17/19 History levothyroxine 176 mcg PO WK 03/17/19 03/17/19 History losartan 50 mg PO Q12 03/17/19 03/17/19 History melatonin 3 mg PO HS 03/17/19 03/17/19 History nitroglycerin [Nitrostat] 0.4 mg SUBLINGUAL Q5M PRN 03/17/19 03/17/19 History oxycodone 5 mg PO DAILY PRN 03/17/19 03/17/19 History pantoprazole 40 mg PO QAM 03/17/19 03/17/19 History paroxetine HCl 10 mg PO HS 03/17/19 03/17/19 History torsemide 100 mg PO DAILY 03/17/19 03/17/19 History umeclidinium 1 inh INHALATION DAILY 03/17/19 03/17/19 History Allergies Allergy/AdvReac Type Severity Reaction Status Date / Time Penicillins Allergy Verified 03/17/19 11:32 Sulfa (Sulfonamide Allergy Verified 03/17/19 11:32 Antibiotics) Past Med/Surg History Medical History Altered mental status (Acute) COPD (chronic obstructive pulmonary disease) Myocardial infarction CKD (chronic kidney disease) GERD (gastroesophageal reflux disease) Hyperthyroidism Surgical History Aortic valve replaced Hx of CABG Family History Other No pertinent family history Social History Preferred Language: Lao Communication Ability: Effective Visual Impairment: No Limitations 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 Other (ROS is limited secondary to altered mental status.) Physical Exam Vital Signs Vital Signs - 24 hr 03/17/19 10:17 03/17/19 10:20 03/17/19 10:26 Temperature Temperature Source Sepsis Recent Fever Within 48 Hours Sepsis New/Unexplained Change in Mental Status Sepsis Action Taken by Nursing Pulse Rate 98 H 99 H 97 H Pulse Rate [Left Finger] Pulse Rate from SpO2 Sensor 97 H 97 H 96 H Respiratory Rate 15 14 16 Blood Pressure 177/158 H 76/56 L Blood Pressure [Right Arm] Blood Pressure Mean 164 62 52 Blood Pressure Mean [Right Arm] Pulse Oximetry 84 L 89 L 88 L Oxygen Delivery Method Room Air Room Air Room Air Oxygen Flow Rate 03/17/19 10:30 03/17/19 10:31 03/17/19 10:32 Temperature 37.2 C Temperature Source Oral Sepsis Recent Fever Within 48 Hours Yes Sepsis New/Unexplained Change in Mental Status Yes Sepsis Action Taken by Nursing No Action Required Pulse Rate 97 H 97 H 98 H Pulse Rate [Left Finger] Pulse Rate from SpO2 Sensor 96 H 96 H Respiratory Rate 16 15 16 Blood Pressure 170/122 H 76/56 L Blood Pressure [Right Arm] Blood Pressure Mean 138 62 Blood Pressure Mean [Right Arm] Pulse Oximetry 96 89 L 98 Oxygen Delivery Method Nasal Cannula Nasal Cannula Nasal Cannula Oxygen Flow Rate 3 3 2 03/17/19 10:40 03/17/19 10:41 03/17/19 10:45 Temperature 38.2 C H Temperature Source Rectal Sepsis Recent Fever Within 48 Hours Sepsis New/Unexplained Change in Mental Status Sepsis Action Taken by Nursing Pulse Rate 94 H 93 H Pulse Rate [Left Finger] Pulse Rate from SpO2 Sensor 95 H 93 H Respiratory Rate 16 13 Blood Pressure 84/65 L Blood Pressure [Right Arm] Blood Pressure Mean 71 Blood Pressure Mean [Right Arm] Pulse Oximetry 93 97 Oxygen Delivery Method Nasal Cannula Nasal Cannula Oxygen Flow Rate 3 3 03/17/19 10:48 03/17/19 10:49 03/17/19 11:03 Temperature 38.2 C H Temperature Source Rectal Sepsis Recent Fever Within 48 Hours Sepsis New/Unexplained Change in Mental Status Sepsis Action Taken by Nursing Pulse Rate 87 Pulse Rate [Left Finger] 98 H Pulse Rate from SpO2 Sensor 85 Respiratory Rate 16 15 Blood Pressure 111/60 Blood Pressure [Right Arm] 82/46 L Blood Pressure Mean 77 Blood Pressure Mean [Right Arm] 58 Pulse Oximetry 99 97 92 Oxygen Delivery Method Nasal Cannula Nasal Cannula Nasal Cannula Oxygen Flow Rate 3 2 3 03/17/19 11:05 03/17/19 11:10 03/17/19 11:20 Temperature Temperature Source Sepsis Recent Fever Within 48 Hours Sepsis New/Unexplained Change in Mental Status Sepsis Action Taken by Nursing Pulse Rate 89 117 H 87 Pulse Rate [Left Finger] Pulse Rate from SpO2 Sensor 91 H 112 H 93 H Respiratory Rate 21 20 22 Blood Pressure Blood Pressure [Right Arm] Blood Pressure Mean Blood Pressure Mean [Right Arm] Pulse Oximetry 95 94 93 Oxygen Delivery Method Nasal Cannula Nasal Cannula Nasal Cannula Oxygen Flow Rate 3 3 3 03/17/19 11:30 03/17/19 11:32 03/17/19 11:40 Temperature Temperature Source Sepsis Recent Fever Within 48 Hours Sepsis New/Unexplained Change in Mental Status Sepsis Action Taken by Nursing Pulse Rate 92 H 90 94 H Pulse Rate [Left Finger] Pulse Rate from SpO2 Sensor 98 H 93 H 89 Respiratory Rate 13 19 14 Blood Pressure 88/50 L Blood Pressure [Right Arm] Blood Pressure Mean 62 Blood Pressure Mean [Right Arm] Pulse Oximetry 98 99 92 Oxygen Delivery Method Nasal Cannula Nasal Cannula Nasal Cannula Oxygen Flow Rate 3 3 3 03/17/19 11:43 03/17/19 11:45 03/17/19 11:50 Temperature Temperature Source Sepsis Recent Fever Within 48 Hours Sepsis New/Unexplained Change in Mental Status Sepsis Action Taken by Nursing Pulse Rate 103 H 107 H Pulse Rate [Left Finger] 88 Pulse Rate from SpO2 Sensor 80 84 Respiratory Rate 18 16 17 Blood Pressure Blood Pressure [Right Arm] Blood Pressure Mean 49 Blood Pressure Mean [Right Arm] Pulse Oximetry 94 91 Oxygen Delivery Method Nasal Cannula Nasal Cannula Nasal Cannula Oxygen Flow Rate 3 3 3 03/17/19 11:54 03/17/19 11:56 03/17/19 12:00 Temperature Temperature Source Sepsis Recent Fever Within 48 Hours Sepsis New/Unexplained Change in Mental Status Sepsis Action Taken by Nursing Pulse Rate 96 H 92 H 90 Pulse Rate [Left Finger] Pulse Rate from SpO2 Sensor 84 85 Respiratory Rate 15 18 16 Blood Pressure 65/50 L 82/48 L 71/44 L Blood Pressure [Right Arm] Blood Pressure Mean 55 59 53 Blood Pressure Mean [Right Arm] Pulse Oximetry Oxygen Delivery Method Nasal Cannula Nasal Cannula Nasal Cannula Oxygen Flow Rate 3 3 3 03/17/19 12:04 03/17/19 12:07 03/17/19 12:10 Temperature Temperature Source Sepsis Recent Fever Within 48 Hours Sepsis New/Unexplained Change in Mental Status Sepsis Action Taken by Nursing Pulse Rate 90 92 H Pulse Rate [Left Finger] 84 Pulse Rate from SpO2 Sensor Respiratory Rate 21 19 19 Blood Pressure 85/39 L Blood Pressure [Right Arm] 71/44 L Blood Pressure Mean 54 Blood Pressure Mean [Right Arm] 53 Pulse Oximetry Oxygen Delivery Method Nasal Cannula Nasal Cannula Nasal Cannula Oxygen Flow Rate 3 3 3 03/17/19 12:15 03/17/19 12:20 03/17/19 12:30 Temperature Temperature Source Sepsis Recent Fever Within 48 Hours Sepsis New/Unexplained Change in Mental Status Sepsis Action Taken by Nursing Pulse Rate 85 85 80 Pulse Rate [Left Finger] Pulse Rate from SpO2 Sensor Respiratory Rate 14 17 18 Blood Pressure 87/45 L 80/56 L Blood Pressure [Right Arm] Blood Pressure Mean 59 64 Blood Pressure Mean [Right Arm] Pulse Oximetry Oxygen Delivery Method Nasal Cannula Nasal Cannula Nasal Cannula Oxygen Flow Rate 3 3 3 03/17/19 12:40 03/17/19 12:45 03/17/19 12:50 Temperature Temperature Source Sepsis Recent Fever Within 48 Hours Sepsis New/Unexplained Change in Mental Status Sepsis Action Taken by Nursing Pulse Rate 88 94 H 95 H Pulse Rate [Left Finger] Pulse Rate from SpO2 Sensor Respiratory Rate 16 21 16 Blood Pressure 78/67 L Blood Pressure [Right Arm] Blood Pressure Mean 70 Blood Pressure Mean [Right Arm] Pulse Oximetry Oxygen Delivery Method Nasal Cannula Nasal Cannula Nasal Cannula Oxygen Flow Rate 3 3 3 03/17/19 13:00 03/17/19 13:10 03/17/19 13:12 Temperature Temperature Source Sepsis Recent Fever Within 48 Hours Sepsis New/Unexplained Change in Mental Status Sepsis Action Taken by Nursing Pulse Rate 83 88 Pulse Rate [Left Finger] 91 H Pulse Rate from SpO2 Sensor Respiratory Rate 17 19 17 Blood Pressure 85/54 L Blood Pressure [Right Arm] 85/54 L Blood Pressure Mean 64 Blood Pressure Mean [Right Arm] 64 Pulse Oximetry 92 Oxygen Delivery Method Nasal Cannula Nasal Cannula Oxygen Flow Rate 3 3 03/17/19 13:15 03/17/19 13:20 Temperature Temperature Source Sepsis Recent Fever Within 48 Hours Sepsis New/Unexplained Change in Mental Status Sepsis Action Taken by Nursing Pulse Rate 98 H 92 H Pulse Rate [Left Finger] Pulse Rate from SpO2 Sensor 102 H 99 H Respiratory Rate 16 19 Blood Pressure 92/66 L Blood Pressure [Right Arm] Blood Pressure Mean 74 Blood Pressure Mean [Right Arm] Pulse Oximetry 92 93 Oxygen Delivery Method Nasal Cannula Nasal Cannula Oxygen Flow Rate 4 4 GENERAL: Moderate distress on nasal cannula, ill appearing. HEAD: Incision on the right parietal C/I/V. Lynch in place, no drainage EYE EXAM: Normal conjunctiva. OROPHARYNX: no exudate, no erythema, lips, buccal mucosa, and tongue normal and mucous membranes are moist NECK: supple, no nuchal rigidity, no adenopathy, non-tender LUNGS: Course breath sounds at the bilateral bases. HEART: no murmurs, S1 normal and S2 normal ABDOMEN: abdomen soft, tender to palpation on the left lower abdomen, normo- active bowel sounds, no masses, no rebound or guarding. BACK: Back is symmetrical on inspection and there is no deformity, no midline tenderness, no CVA tenderness. SKIN: no rashes and no bruising UPPER EXTREMITIES: upper extremities are grossly normal. LOWER EXTREMITIES: No pitting edema. NEURO EXAM: Normal sensorium, cranial nerves II-XII grossly intact, normal speech, no gross weakness of arms, no gross weakness of legs. Course 1019: Past medical records reviewed. The patient was evaluated in room A04B. A complete history and physical examination was performed. 1029: Call out to [facility]. 1042: I spoke with [facility]. 1043: I reviewed the patient's case with Dr. Raya - Cardiology. 1044: The patient's blood pressure is 84. We will give fluids and recheck. 1108: I reviewed the patient's case with Dr. Paresh Dove - Radiology. 1110: I spoke with Nicol from [facility]. The patient is on blood thinners. 1120: The patient's family is at bedside. 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 Dr. Raya is at bedside and recommends sepsis treatment at this time. 1202: I reviewed the patient's case with Dr. Joshua - [facility]. 1203: The patient's pressure dropped into the 40s. 1210: The patient's pressure is in the 80s. 1240: Dr. Joshua - [facility] has accepted the patient. 1247: I reviewed the patient's case with Margaret ENGLAND [facility]. She will evaluate the patient for further management. 1410: The patient's pressures have dropped into the 70s. I discussed placing a line with ICU. 1444: The patient's pressure is back up to 95. Consultations Consultation #1: 1043: I reviewed the patient's case with Dr. Raya - Cardiology. Time: 10:43 Consultation #2: 1108: I reviewed the patient's case with Dr. Paresh Dove - Radiology. Time: 11:08 Consultation #3: 1202: I reviewed the patient's case with Dr. Shippert - [facility]. Time: 12:02 Additional Consultation(s): 1247: I reviewed the patient's case with Margaret ENGLAND Hospitalist - [facility]. She will evaluate the patient for further management. Administered Medications Discontinued Medications Cefepime HCl 1,000 mg/ Syringe 11.3 mls @ 5.5 mls/min IV NOW STA; Protocol Stop: 03/17/19 10:28 Last Admin: 03/17/19 11:04 Dose: 5.5 mls/min Documented by: [id number] Sodium Chloride (Nss 1000ml) 2,000 mls @ 999 mls/hr IV .Q2H1M ONE Stop: 03/17/19 12:30 Last Infusion: 03/17/19 13:07 Dose: 0 mls/hr Documented by: [id number] Admin: 03/17/19 11:04 Dose: 999 mls/hr Documented by: [id number] Vancomycin HCl 2,000 mg/ (Sodium Chloride) 540 mls @ 200 mls/hr IV NOW ONE; Protocol Stop: 03/17/19 14:02 Last Infusion: 03/17/19 14:30 Dose: 0 mls/hr Documented by: [id number] Admin: 03/17/19 11:42 Dose: 200 mls/hr Documented by: [id number] Norepinephrine Bitartrate 4 mg (/ Dextrose) 254 mls @ 18.65 mls/hr IV .[id number] [facility]; Protocol Stop: 03/17/19 15:15 Last Admin: 03/17/19 14:18 Dose: 0.05 mcg/kg/min, 18.7 mls/hr Documented by: [id number] Cosigned by: [id number] Medical Decision Making Differential Diagnosis Differential diagnoses: Metabolic, infection, hypoglycemia, electrolyte abnormalities, cardiac sources, intracerebral event, toxicologic, neurologic, as well as others were entertained. Medical Records Attestation: I reviewed the patient's medical records. Home Medications Current Medication List: was personally reviewed by me Laboratory Data Attestation: I reviewed the patient's lab results. Result diagrams: 03/17/19 10:37 03/17/19 10:37 Lab Results 03/17/19 03/17/19 03/17/19 Range/Units 10:37 10:37 10:37 WBC 5.34 (4.8-10.8) K/uL RBC 3.13 L (4.7-6.1) M/uL Hgb 9.4 L (14.0-18.0) g/dL POC Hgb (14.0-18.0) g/dl Hct 29.3 L (42-52) % POC Hct (42-52) % MCV 93.6 (80-100) fL MCH 30.0 (25-34) pg MCHC 32.1 (32-36) g/dL RDW Std Deviation 64.5 H (36.4-46.3) fL RDW Coeff of Stephane 19.2 H (11.5-14.5) % Plt Count 162 (130-400) K/uL MPV 10.9 H (7.4-10.4) fL Immature Gran % (Auto) 0.4 % Neut % (Auto) 58.0 % Lymph % (Auto) 31.3 % [place] % (Auto) 6.9 % Eos % (Auto) 2.8 % Baso % (Auto) 0.6 % Immature Gran # (Auto) 0.02 (0.00-0.02) K/uL Neut # (Auto) 3.10 (1.4-6.5) K/uL Lymph # (Auto) 1.67 (1.2-3.4) K/uL [place] # (Auto) 0.37 (0.11-0.59) K/uL Eos # (Auto) 0.15 (0-0.5) K/uL Baso # (Auto) 0.03 (0-0.2) K/uL Absolute Nucleated RBC 0.04 H (0-0) K/uL Nucleated RBC % (auto) 0.7 % RBC Agglutinates 1+ PT 10.9 (9.0-12.0) Seconds INR 1.1 (0.9-1.1) APTT 30.8 (21.0-31.0) Seconds PTT Ratio 1.1 VBG pH (7.36-7.41) VBG pCO2 (38-50) mmHg VBG pO2 mmHg VBG HCO3 mmol/L VBG O2 Saturation % VBG Base Excess mEq/L Barometric Pressure mm/Hg POC Sodium (135-144) mEq/L Sodium 135 L (136-145) mmol/L POC Potassium (3.3-5.0) mEq/L Potassium 4.5 (3.5-5.1) mmol/L POC Chloride (101-112) mEq/L Chloride 97 L (98-107) mmol/L Carbon Dioxide 26 (21-32) mmol/L POC Total CO2 (24-31) mEq/l Anion Gap 12.0 H (3-11) POC Anion Gap (16-25) mmol/L POC BUN (7-18) mg/dl BUN 67 H (7-18) mg/dl Creatinine 4.18 H (0.6-1.4) mg/dl POC Creatinine (0.6-1.3) mg/dl Est Cr Clr Drug Dosing 18.4 ml/min Est GFR ( Amer) 15.5 Est GFR (Non-Af Amer) 13.4 BUN/Creatinine Ratio 15.9 (10-20) Glucose 96 (70-99) mg/dl POC Glucose (other) (70-99) mg/dl Lactate (0.4-2.0) mmol/L Calcium 9.0 (8.5-10.1) mg/dl POC Ioniz Calcium [place] (1.12-1.32) mmol/l Total Bilirubin 0.7 (0.2-1) mg/dl AST 27 (15-37) U/L ALT 55 (12-78) U/L Alkaline Phosphatase 93 (45-117) U/L Total Protein 7.0 (6.4-8.2) gm/dl Albumin 2.5 L (3.4-5.0) gm/dl Globulin 4.5 H (2.5-4.0) gm/dl Albumin/Globulin Ratio 0.6 L (0.9-2) Procalcitonin (0-0.5) ng/ml Urine Color Urine Appearance (Clear) Urine pH (4.5-7.5) Ur Specific [place] (1.000-1.030) Urine Protein (Negative) Urine Glucose (UA) (Negative) Urine Ketones (Negative) Urine Blood (Negative) Urine Nitrite (Negative) Urine Bilirubin (Negative) Urine Urobilinogen (Negative) Ur Leukocyte Esterase (Negative) Urine WBC (Auto) (0-5) /hpf Urine RBC (Auto) (0-4) /hpf U Hyaline Cast (Auto) (0-5) /lpf U Epithel Cells (Auto) (0-5) /lpf Urine Bacteria (Auto) (Negative) 03/17/19 03/17/19 03/17/19 Range/Units 10:37 10:37 10:37 WBC (4.8-10.8) K/uL RBC (4.7-6.1) M/uL Hgb (14.0-18.0) g/dL POC Hgb (14.0-18.0) g/dl Hct (42-52) % POC Hct (42-52) % MCV (80-100) fL MCH (25-34) pg MCHC (32-36) g/dL RDW Std Deviation (36.4-46.3) fL RDW Coeff of Stephane (11.5-14.5) % Plt Count (130-400) K/uL MPV (7.4-10.4) fL Immature Gran % (Auto) % Neut % (Auto) % Lymph % (Auto) % [place] % (Auto) % Eos % (Auto) % Baso % (Auto) % Immature Gran # (Auto) (0.00-0.02) K/uL Neut # (Auto) (1.4-6.5) K/uL Lymph # (Auto) (1.2-3.4) K/uL [place] # (Auto) (0.11-0.59) K/uL Eos # (Auto) (0-0.5) K/uL Baso # (Auto) (0-0.2) K/uL Absolute Nucleated RBC (0-0) K/uL Nucleated RBC % (auto) % RBC Agglutinates PT (9.0-12.0) Seconds INR (0.9-1.1) APTT (21.0-31.0) Seconds PTT Ratio VBG pH 7.37 (7.36-7.41) VBG pCO2 47 (38-50) mmHg VBG pO2 31 mmHg VBG HCO3 27 mmol/L VBG O2 Saturation 61.2 % VBG Base Excess 0.9 mEq/L Barometric Pressure 733.2 mm/Hg POC Sodium (135-144) mEq/L Sodium (136-145) mmol/L POC Potassium (3.3-5.0) mEq/L Potassium (3.5-5.1) mmol/L POC Chloride (101-112) mEq/L Chloride (98-107) mmol/L Carbon Dioxide (21-32) mmol/L POC Total CO2 (24-31) mEq/l Anion Gap (3-11) POC Anion Gap (16-25) mmol/L POC BUN (7-18) mg/dl BUN (7-18) mg/dl Creatinine (0.6-1.4) mg/dl POC Creatinine (0.6-1.3) mg/dl Est Cr Clr Drug Dosing ml/min Est GFR ( Amer) Est GFR (Non-Af Amer) BUN/Creatinine Ratio (10-20) Glucose (70-99) mg/dl POC Glucose (other) (70-99) mg/dl Lactate 1.2 (0.4-2.0) mmol/L Calcium (8.5-10.1) mg/dl POC Ioniz Calcium [place] (1.12-1.32) mmol/l Total Bilirubin (0.2-1) mg/dl AST (15-37) U/L ALT (12-78) U/L Alkaline Phosphatase (45-117) U/L Total Protein (6.4-8.2) gm/dl Albumin (3.4-5.0) gm/dl Globulin (2.5-4.0) gm/dl Albumin/Globulin Ratio (0.9-2) Procalcitonin 0.44 (0-0.5) ng/ml Urine Color Urine Appearance (Clear) Urine pH (4.5-7.5) Ur Specific [place] (1.000-1.030) Urine Protein (Negative) Urine Glucose (UA) (Negative) Urine Ketones (Negative) Urine Blood (Negative) Urine Nitrite (Negative) Urine Bilirubin (Negative) Urine Urobilinogen (Negative) Ur Leukocyte Esterase (Negative) Urine WBC (Auto) (0-5) /hpf Urine RBC (Auto) (0-4) /hpf U Hyaline Cast (Auto) (0-5) /lpf U Epithel Cells (Auto) (0-5) /lpf Urine Bacteria (Auto) (Negative) 03/17/19 03/17/19 Range/Units 10:39 11:05 WBC (4.8-10.8) K/uL RBC (4.7-6.1) M/uL Hgb (14.0-18.0) g/dL POC Hgb 8.5 L (14.0-18.0) g/dl Hct (42-52) % POC Hct 25 L (42-52) % MCV (80-100) fL MCH (25-34) pg MCHC (32-36) g/dL RDW Std Deviation (36.4-46.3) fL RDW Coeff of Stephane (11.5-14.5) % Plt Count (130-400) K/uL MPV (7.4-10.4) fL Immature Gran % (Auto) % Neut % (Auto) % Lymph % (Auto) % [place] % (Auto) % Eos % (Auto) % Baso % (Auto) % Immature Gran # (Auto) (0.00-0.02) K/uL Neut # (Auto) (1.4-6.5) K/uL Lymph # (Auto) (1.2-3.4) K/uL [place] # (Auto) (0.11-0.59) K/uL Eos # (Auto) (0-0.5) K/uL Baso # (Auto) (0-0.2) K/uL Absolute Nucleated RBC (0-0) K/uL Nucleated RBC % (auto) % RBC Agglutinates PT (9.0-12.0) Seconds INR (0.9-1.1) APTT (21.0-31.0) Seconds PTT Ratio VBG pH (7.36-7.41) VBG pCO2 (38-50) mmHg VBG pO2 mmHg VBG HCO3 mmol/L VBG O2 Saturation % VBG Base Excess mEq/L Barometric Pressure mm/Hg POC Sodium 132 L (135-144) mEq/L Sodium (136-145) mmol/L POC Potassium 4.6 (3.3-5.0) mEq/L Potassium (3.5-5.1) mmol/L POC Chloride 98 L (101-112) mEq/L Chloride (98-107) mmol/L Carbon Dioxide (21-32) mmol/L POC Total CO2 25 (24-31) mEq/l Anion Gap (3-11) POC Anion Gap 15.0 L (16-25) mmol/L POC BUN 72 H (7-18) mg/dl BUN (7-18) mg/dl Creatinine (0.6-1.4) mg/dl POC Creatinine 4.6 H* (0.6-1.3) mg/dl Est Cr Clr Drug Dosing ml/min Est GFR ( Amer) Est GFR (Non-Af Amer) BUN/Creatinine Ratio (10-20) Glucose (70-99) mg/dl POC Glucose (other) 100 H (70-99) mg/dl Lactate (0.4-2.0) mmol/L Calcium (8.5-10.1) mg/dl POC Ioniz Calcium [place] 1.15 (1.12-1.32) mmol/l Total Bilirubin (0.2-1) mg/dl AST (15-37) U/L ALT (12-78) U/L Alkaline Phosphatase (45-117) U/L Total Protein (6.4-8.2) gm/dl Albumin (3.4-5.0) gm/dl Globulin (2.5-4.0) gm/dl Albumin/Globulin Ratio (0.9-2) Procalcitonin (0-0.5) ng/ml Urine Color Yellow Urine Appearance Cloudy A (Clear) Urine pH 5.0 (4.5-7.5) Ur Specific [place] 1.017 (1.000-1.030) Urine Protein Negative (Negative) Urine Glucose (UA) Negative (Negative) Urine Ketones Negative (Negative) Urine Blood Negative (Negative) Urine Nitrite Negative (Negative) Urine Bilirubin Negative (Negative) Urine Urobilinogen Negative (Negative) Ur Leukocyte Esterase Negative (Negative) Urine WBC (Auto) 1-5 (0-5) /hpf Urine RBC (Auto) 10-30 H (0-4) /hpf U Hyaline Cast (Auto) 1-5 (0-5) /lpf U Epithel Cells (Auto) 10-20 H (0-5) /lpf Urine Bacteria (Auto) 1+ H (Negative) Imaging Data Radiologist's Impression: Radiology results as stated below per my review and the radiologist's interpretation: CT abd pelvis wo con CT DOSE: 1709.55 mGy.cm HISTORY: Mental status change ams TECHNIQUE: Multiaxial CT images of the abdomen and pelvis were performed without contrast. A dose lowering technique was utilized adhering to the principles of ALARA. COMPARISON STUDY: None. FINDINGS: Interstitial prominence both lung bases. General configuration of liver spleen and pancreas is unremarkable. No significant gallbladder distention. Kidneys are considered negative for hydronephrosis. There are small exophytic hyperdense cysts involving the lower pole both kidneys. Nonobstructive bowel pattern. No free fluid within the pelvic cul-de-sac. The bladder is midline. There is a fat-containing left inguinal hernia. There is no evidence for bowel containment. 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 IMPRESSION: 1. No acute process in the abdomen or pelvis. 2. Minimal incidental findings as noted. 3. 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 The above report was generated using voice recognition software. It may contain grammatical, syntax or spelling errors. Electronically signed by: Paresh Dove M.D. 03/17/2019 11:08 AM Dictated: 03/17/19 1105 Transcribed: 03/17/191104 CT head/brain wo con CT DOSE: HISTORY: Postoperative change mental status. ams recetn surg TECHNIQUE: Multiaxial CT images of the head were performed without the use of intravenous contrast. A dose lowering technique was utilized adhering to the principles of ALARA. Comparison: None. Findings: The paranasal sinuses and mastoid air cells are clear. Findings of 2 tomás holes over the right cerebral convexity. No evidence for drainage catheter. Right subdural hematoma with maximum thickness of 8 mm. This may be subacute. Slight effacement of the sulci of the right cerebral hemisphere. Slight midline shift to the left of 3 mm. No evidence for parenchymal hemorrhagic component. Impression: 1. Small subacute right subdural hematoma having maximum thickness of 8 mm. 2. Slight effacement of the right cerebral sulci with midline shift to the left of 3 mm. 3. 2 operative burro holes over the right cerebral convexity The above report was generated using voice recognition software. It may contain grammatical, syntax or spelling errors. Electronically signed by: Paresh Dove M.D. 03/17/2019 11:04 AM Dictated: 03/17/19 1102 Transcribed: 03/17/19 110 XR chest 1V portable CLINICAL HISTORY: Sepsis dyspnea COMPARISON STUDY: No previous studies for comparison. FINDINGS: Mild cardiomegaly. Pulmonary vascular congestion. No well-defined focal infiltrate. Diaphragms are smooth. IMPRESSION: Mild cardiomegaly. Pulmonary vascular congestion. The above report was generated using voice recognition software. It may contain grammatical, syntax or spelling errors. Electronically signed by: Paresh Dove M.D. 03/17/2019 12:11 PM Dictated: 03/17/19 1210 Transcribed: 03/17/19 1210 ECG Data Attestation: I personally reviewed and interpreted this ECG as follows: Rate (beats per minute): 98 Rhythm: sinus rhythm Findings: + other (Poor baseline in the lateral), + ST depression (high lateral) and + ST elevation (inferior) Comparison ECG Date: from (11/18/1997) Change: the following changes noted (All new) Blood Pressure Blood Pressure Findings: Low blood pressure Blood Pressure Disposition: further management by hospitalist KRISH Narrative Patient is a 73-year-old male status post subdural Alphonso with evacuation and bur holes that presents the ER for altered mental status from the fpc. He was found to be febrile at 101 and confused which is been present for the past 24 hours. Upon arrival to the ER he was found to be hypotensive with systolic pressures in the 70s altered with a temp of 38 and slightly tachycardic. IVs were established and sepsis alert was called. Labs show a mild leukopenia at 5000. Hemoglobin with mild anemia at 9.4. INR was unremarkable. He does take Lovenox injections twice a day. VBG was unremarkable. He was placed on nasal cannula. BMP with mild hyponatremia. Creatinine was significant elevated at 4.1. Lactate was normal at 1.1. LFTs bilirubin was unremarkable. UA with bacteria but was contaminated with epithelial cells. Did place a Jeffries but patient became agitated and this was removed. CT head when compared to Franny's report was actually significantly improved. Comparison was made to the report on 03/06/2019 at 1458. Discussed with family and the advanced manufacturing vice president. Patient was given 3 L IV fluids in combination with cefepime and vancomycin. Patient eventually dropped his pressures again after he was evaluated and accepted to the ICU as a DNR/DNI and seen by the hospitalist. I placed him on levo fed peripherally to sustain his blood pressures and mean arterial pressures. I did this in conjunction with the ICU who notes that they will place the central line as he was going/being transferred over to the advanced manufacturing vice president. Patient was monitored closely and admitted to the advanced manufacturing vice president on a Levophed drip. Impression & Plan Sepsis, Altered mental status, Subdural hematoma, UTI (urinary tract i nfection), Hypotension Critical Care Time Critical Care Time: Yes (75) Total Critical Care Time: 75 I have personally spent 75 minutes of critical care time in the direct management of this patient. This includes bedside care, interpretation of diagnostic studies, and testing, discussion with consultants, patient, and family members, and other required patient management activities. This 75 minutes is in excess of all separately billable procedures. Discharge Plan Visit Data *Final* Discharge Date/Time: 03/17/19 14:31 Chief Complaint: Altered Mental Status ED Provider: Tarun Ni Discharge Problem: Sepsis, Altered mental status, Subdural hematoma, UTI (urinary tract infection), Hypotension Patient Disposition: Admitted As Inpatient Discharge Instructions Interventions: ED Discharge Assessment Last Done: 03/17/19 14:31 Discharge Problem: Sepsis Qualifiers: Sepsis type: sepsis due to unspecified organism Qualified Code(s): A41.9 - Sepsis, unspecified organism Altered mental status Qualifiers: Altered mental status type: unspecified Qualified Code(s): R41.82 - Altered mental status, unspecified UTI (urinary tract infection) Qualifiers: Urinary tract infection type: site unspecified Hematuria presence: without hematuria Qualified Code(s): N39.0 - Urinary tract infection, site not specified Hypotension Qualifiers: Hypotension type: unspecified hypotension type Qualified Code(s): I95.9 - Hypotension, unspecified The scribe's documentation has been prepared under my direction and personally reviewed by me in its entirety. I confirm that the note above accurately reflects all work, treatment, procedures, and medical decision making performed by me.
[2019-03-17] MEDS ORDERED: NOREPINEPHRINE BIT INJ 8 MG in DEXTROSE 5% 500 ML IV SCH (17:31)
[2019-03-17] MEDS: NORMOSOL-R 1,000 ML IV SCH (17:53)
[2019-03-17] MEDS ORDERED: CEFEPIME CONSULT ACTIVE PRN (19:01)
--- NOTE | 2019-03-17 20:35 | Procedure Note ---
Procedure Note Date of Service March 17, 2019 Procedure: Bench Molder Indwelling Peripherally Inserted IV Catheter Placement Attending: Dr. Joshua APC: Andrea Rice PA-C Indication: Need for IV Access, Poor Vascular Access Anesthesia: None Verbal consent was obtained from patient prior to performing the procedure. A time-out was completed verifying correct patient, procedure, site, positioning, and implant(s) or special equipment if applicable. Utilizing bedside ultrasound, vascularity of the LEFT upper extremity was assessed. Vessel size was noted for appropriate catheter selection and skin was marked with gentle pressure. Patients LEFT upper extremity was prepped and draped in the usual sterile fashion utilizing chlorhexidine. Ultrasound guidance was used to aid needle placement. An 18 g Endurance Catheter was introduced into the LEFT Cephalic vein under direct ultrasound guidance. Guide wire was easily deployed without resistance. Catheter was threaded over the guide wire without resistance and the entire apparatus was removed intact. Good venous blood return was noted in the catheter. The IV catheter was easily flushed with sterile saline flush. Sterile clave was attached to the end of the catheter and good blood return was again noted. Tourniquet was released. StatLock device and sterile dressing were applied. The patient tolerated the procedure well. Blood Loss: Minimal Complications: None Procedural Ultrasound Guidance: Procedure Date: 03/17/2019 Indication: Poor Vascular Access Attending: Dr. Joshua APC: Andrea Rice PA-C Artery/Veins Identified: YES Access confirmed in Vein with ultrasound: YES Complications: NONE Patient tolerated procedure: WELL Coding
[2019-03-17] MEDS: DOCUSATE SODIUM 100 MG CAP PO SCH (20:54)
[2019-03-17] MEDS ORDERED: PARoxetine HCl 10 MG TAB PO SCH (21:00)
[2019-03-17] MEDS ORDERED: FAMOTIDINE 20 MG TAB PO SCH (21:00)
[2019-03-17 21:01] LABS: BUN Creatinine Ratio 17.6 (10-20); Calcium 8.1 mg/dl (8.5-10.1); Est GFR (African American) 20.6; Est GFR (Non-African American) 17.7; Potassium 4.3 mmol/L (3.5-5.1)
[2019-03-18] MEDS: NORMOSOL-R 1,000 ML IV SCH ×2 (00:16→08:15)
[2019-03-18 05:26] LABS: Est GFR (African American) 27.5
[2019-03-18 05:27] LABS: Albumin Level 2.1 gm/dl (3.4-5.0); BUN Creatinine Ratio 19.7 (10-20); Bilirubin Direct 0.2 mg/dl (0-0.2); Calcium 7.9 mg/dl (8.5-10.1); Creatinine Clr Calc Pharmacy 29.3 ml/min; Est GFR (Non-African American) 23.7
[2019-03-18 05:29] LABS: Bilirubin,Total 0.5 mg/dl (0.2-1); Total Protein 6.2 gm/dl (6.4-8.2)
[2019-03-18 06:22] LABS: Hematocrit (blood only) 23.2 % (42-52); Hemoglobin 7.9 g/dL (14.0-18.0); Mean Corpuscular Hgb Conc 34.1 g/dL (32-36); Mean Corpuscular Volume 98.7 fL (80-100); Mean Platelet Volume 10.9 fL (7.4-10.4); Platelet Count 141 K/uL (130-400); RDW Coefficient of Variation 22.1 % (11.5-14.5); RDW Standard Deviation 65.7 fL (36.4-46.3); Red Blood Count 2.35 M/uL (4.7-6.1); White Blood Count 3.67 K/uL (4.8-10.8)
[2019-03-18 06:24] LABS: Agglutinated RBC 1+; Basophils # (auto) 0.03 K/uL (0-0.2); Basophils % (auto) 0.8 %; Eosinophils # (auto) 0.09 K/uL (0-0.5); Eosinophils % (auto) 2.5 %; Immature Granulocytes # (auto) 0.02 K/uL (0.00-0.02); Immature Granulocytes % (auto) 0.5 %; Lymphocytes # (auto) 1.12 K/uL (1.2-3.4); Lymphocytes % (auto) 30.5 %; Monocytes # (auto) 0.29 K/uL (0.11-0.59); Monocytes % (auto) 7.9 %; Neutrophils # (auto) 2.12 K/uL (1.4-6.5); Neutrophils % (auto) 57.8 %
[2019-03-18] MEDS ORDERED: VANCOMYCIN HCL 1,000 MG in SODIUM CHLORIDE 0.9% 250 ML IV ONE (06:30)
[2019-03-18] MEDS ORDERED: LEVOTHYROXINE SODIUM 88 MCG TABLET PO SCH (06:30)
--- NOTE | 2019-03-18 06:41 | Critical Care Consultation ---
Date of Consultation March 18, 2019 Assessment & Plan (1) Admitted to intensive care unit: Mr. Victoriano Vinson is a 73 y/o with recent subdural hematoma evacuation who presents with sepsis and hypotension. Neuro: CT Head 1. Small subacute right subdural hematoma having maximum thickness of 8 mm. 2. Slight effacement of the right cerebral sulci with midline shift to the left of 3 mm. 3. 2 operative burro holes over the right cerebral convexity - altered mental status most likely from recent head injury Cardiac/Vascular PMHx: CAD, CABG, HTN, HLD, aortic valve replacement Echocardiogram in ED * 1. Nml LV size; mild concentric LVH * 2. LVEF 55-60%; base to mid-inferior, inferolateral hypokinesis * 3. RV/RA mildy dilated; mild RV dysfunction * 4. No pericardial effusion * 5. Atrial septal aneurysm Holding home anti-hypertensives in setting of sepsis and hypotension Pulm Hx of COPD Supplemental O2 NC Albuterol PRN GI: - currently NPO pending ICU procedures Renal/lytes Creatinine is elevated at 4.18 which is up from review of [place] where values appeared baseline 1.5 with highest value 2.0, supportine ANUJA on CKD. Nephology consult placed - patient became agitated with insertion of magaña in ED, which raises suspicion for prostatitis or urinary tract source of infection Endo - AG = 12 - Hyponatremic slightly at 135, will trend - No history of DM - Hypothyroidism - continue with home Synthroid Heme - WBC WNL - Hgb - 9.4, no current signs of active bleeding - Platelets WNL ID - continue with home Cefepime for suspicion for infection DVT ppx: SCDs Resuscitation status - DNR/DNI History of Present Illness Attending Physician: Monica Lau Allergies Allergy/AdvReac Type Severity Reaction Status Date / Time Penicillins Allergy Verified 03/17/19 11:32 Sulfa (Sulfonamide Allergy Verified 03/17/19 11:32 Antibiotics) Home Medications Home Medications Medication Instructions Recorded Confirmed Type acetaminophen [Tylenol Extra 500 mg PO Q4H PRN 03/17/19 03/17/19 History Strength] albuterol sulfate 180 mcg INHALATION Q4H PRN 03/17/19 03/17/19 History allopurinol 300 mg PO DAILY 03/17/19 03/17/19 History carvedilol 12.5 mg PO BIDM 03/17/19 03/17/19 History clonazepam 0.5 mg PO BID 03/17/19 03/17/19 History docusate sodium [Colace] 100 mg PO BID 03/17/19 03/17/19 History enoxaparin [Lovenox] 30 mg SUBCUT Q12H 03/17/19 03/17/19 History fluticasone furoate-vilanterol 1 inh INHALATION DAILY 03/17/19 03/17/19 History isosorbide mononitrate 60 mg PO QAM 03/17/19 03/17/19 History levothyroxine 88 mcg PO 6XWK 03/17/19 03/17/19 History levothyroxine 176 mcg PO WK 03/17/19 03/17/19 History losartan 50 mg PO Q12 03/17/19 03/17/19 History melatonin 3 mg PO HS 03/17/19 03/17/19 History nitroglycerin [Nitrostat] 0.4 mg SUBLINGUAL Q5M PRN 03/17/19 03/17/19 History oxycodone 5 mg PO DAILY PRN 03/17/19 03/17/19 History pantoprazole 40 mg PO QAM 03/17/19 03/17/19 History paroxetine HCl 10 mg PO HS 03/17/19 03/17/19 History torsemide 100 mg PO DAILY 03/17/19 03/17/19 History umeclidinium 1 inh INHALATION DAILY 03/17/19 03/17/19 History Patient History Medical History Altered mental status (Acute) COPD (chronic obstructive pulmonary disease) Myocardial infarction CKD (chronic kidney disease) GERD (gastroesophageal reflux disease) Hyperthyroidism Surgical History Aortic valve replaced Hx of CABG Family History Other No pertinent family history Social History Preferred Language: [place] Communication Ability: Effective Visual Impairment: No Limitations Hearing Ability: Normal Sales Operations Manager Required: No Beliefs That Will Affect Care: None Current Living Situation: Rehab Current Living Situation Comment: [facility] Other Information That Helps Us Care for You: No Feels Safe at Home: Yes Safety Concerns: Feels Safe At This Time Smoking Status: Former smoker Hx Alcohol Use: No Hx Substance Use: No Physical Exam Respiratory: normal respiratory effort; no respiratory distress Cardiovascular: Rate/Rhythm: regular rate and regular rhythm Extremities: no pedal edema Gastrointestinal (Abdomen): Percussion/Palpation: abdomen nontender Skin: no rashes, warm and dry Results & Data Vital Signs (Past 12 Hours) Vital Signs Temp Pulse Resp BP Pulse Ox 03/18/19 06:30 95 H 16 116/73 100 03/18/19 06:16 106 H 17 91/73 L 89 L 03/18/19 06:01 89 17 81/56 L 99 03/18/19 05:31 93 H 20 138/86 100 03/18/19 05:15 90 17 108/71 100 03/18/19 05:00 91 H 17 99/73 L 100 03/18/19 04:47 91 H 17 112/69 100 03/18/19 04:31 90 18 123/82 100 03/18/19 04:16 96 H 23 93/60 L 100 03/18/19 04:00 91 H 18 103/67 100 03/18/19 03:46 92 H 18 122/72 100 03/18/19 03:32 91 H 18 96/61 L 99 03/18/19 03:15 92 H 19 140/122 H 98 03/18/19 03:01 93 H 18 134/53 L 100 03/18/19 02:45 94 H 19 134/87 100 03/18/19 02:30 93 H 18 124/90 100 03/18/19 02:15 93 H 29 H 113/52 L 100 03/18/19 02:12 95 H 20 94/49 L 100 03/18/19 02:04 105 H 24 79/54 L 100 03/18/19 02:02 103 H 27 H 72/37 L 99 03/18/19 01:01 94 H 19 111/86 100 03/18/19 00:07 37.1 C 92 H 20 110/65 03/17/19 23:36 96 H 21 128/62 03/17/19 23:15 91 H 20 109/62 99 03/17/19 23:03 92 H 03/17/19 23:00 93 H 22 127/75 90 03/17/19 22:15 92 H 21 113/81 03/17/19 22:07 96 H 22 154/90 H 03/17/19 22:00 109 H 21 03/17/19 21:31 89 18 108/83 03/17/19 21:30 89 21 03/17/19 21:16 92 H 23 117/82 03/17/19 21:01 90 20 124/75 03/17/19 21:00 91 H 20 03/17/19 20:46 89 19 124/92 97 03/17/19 20:38 101 H 23 102/68 98 03/17/19 20:30 90 19 03/17/19 20:07 86 18 98 03/17/19 20:06 37.0 C 85 18 140/100 03/17/19 20:00 90 21 03/17/19 19:46 86 20 106/69 03/17/19 19:31 84 19 141/88 H 90 03/17/19 19:30 82 18 94 03/17/19 19:24 81 18 115/81 90 03/17/19 19:16 84 17 140/116 H 03/17/19 19:00 80 16 123/82 96 03/17/19 18:47 82 17 166/82 H PG Care Time/CCT Total # of Minutes Spent Total Time Spent with Patient: Total time spent is greater than 50% in coordination of care (as documented) at patient's floor/unit and/or counseling patient:
[2019-03-18] MEDS ORDERED: ACETAMINOPHEN 500 MG TAB PO PRN (07:03)
--- NOTE | 2019-03-18 07:05 | XRay Report ---
XR chest 1V portable HISTORY: 73 years-old Male f/u follow-up study. Acute sepsis COMPARISON: Chest radiograph and CT abdomen and pelvis 03/17/2019 TECHNIQUE: Portable AP view of the chest FINDINGS: Cardiac silhouette is enlarged, unchanged. Mild pulmonary vascular congestion prior median sternotomy with findings suggestive of prior CABG. Unchanged mild blunting of the costophrenic angles. No pneum othorax, large pleural effusion, overt pulmonary edema or lobar airspace consolidation. Ill-defined o pacities of the bilateral upper lung zones. Degenerative changes of the shoulders and spine. IMPRESSION: 1. Cardiomegaly with pulmonary vascular congestion. 2. No overt pulmonary edema or lobar airspace consolidation. 3. Ill-defined opacities of the bilateral upper lung zones, likely secondary to summation density wit h pulmonary vasculature. A subtle pneumonitis considered less likely. The above report was generated using voice recognition software. It may contain grammatical, syntax o r spelling errors. Electronically signed by: Son Charles M.D. 03/18/2019 7:04 AM
--- NOTE | 2019-03-18 07:52 | Critical Care Progress Note ---
Date of Service March 18, 2019 Assessment & Plan (1) Admitted to intensive care unit: Mr. Victoriano Vinson is a 73 y/o with recent subdural hematoma evacuation who presents with sepsis and hypotension. Neuro: CT Head 1. Small subacute right subdural hematoma having maximum thickness of 8 mm. 2. Slight effacement of the right cerebral sulci with midline shift to the left of 3 mm. 3. 2 operative burro holes over the right cerebral convexity - altered mental status with orientation only to person and time. - repeat Head CT this AM to re-evaluate subdural hematoma size - Speech consulted for swallowing study Cardiac/Vascular PMHx: CAD, CABG, HTN, HLD, aortic valve replacement Echocardiogram in ED * 1. Nml LV size; mild concentric LVH * 2. LVEF 55-60%; base to mid-inferior, inferolateral hypokinesis * 3. RV/RA mildy dilated; mild RV dysfunction * 4. No pericardial effusion * 5. Atrial septal aneurysm Holding home anti-hypertensives in setting of sepsis and hypotension US LE venous doppler to r/o DVT as off coagulation and fever last night. Repeat ECG ordered for tachycardia. Will restart Heparin after Head CT pending no increase in subdural hematoma. Pulm Hx of COPD Supplemental O2 NC Albuterol PRN GI: - currently NPO as requiring pressors Renal/lytes Creatinine elevated at 4.18 on presentation which trended down to 3.31 then 2.6 today after IVFs - Review of [facility] where values appeared baseline 1.5 with highest value 2.0, supportine ANUJA on CKD. Nephology consult placed - patient became agitated with insertion of magaña in ED, which raises suspicion for prostatitis or urinary tract source of infection Endo - AG = 9, improved from 12 - Hyponatremic corrected to 137 - No history of DM - Hypothyroidism - continue with home Synthroid Heme - WBC WNL - Hgb - 9.4 on 03/17, now 7.9 this AM, possibly was falsely elevated from hemoconcentration as values improved s/p IVFs, no current signs of active bleeding - Platelets WNL ID - continue with board spectrum abx Cefepime and Vanc for suspicion for infection DVT ppx: SCDs; Heparin after Head CT Resuscitation status - DNR/DNI Supervising Physician Co-Signing Physician Notes Dr. Acosta was resident physician during care of patient. I separately evaluated patient for lundberg portions of the history and the exam. I was present during the critical portion of medical decision making, and I discussed the case with the resident. I generally agree with the findings and plan. Patient's ANUJA has improved. Mental status continues to wax and wane will obtain a repeat CT scan to check for progression of subdural hematoma but again I believe this is residual after operative management. Continue broad-spectrum antibiotics until possible speciation from urinalysis as well as blood cultures. Bilateral lower extremity venous duplex patient was febrile yesterday but that is resolved with the addition of antibiotics however I cannot exclude subacute DVT. Subsequently DVT screening was negative PT OT speech eval if passes swallow evaluation will proceed with diet Continue supplemental fluid, ANUJA significantly improved Addressed CODE STATUS yesterday, palliative care consult may benefit from outpatient services. Repeat EKG to evaluate underlie. Will institute DVT prophylaxis after CT scan if no change in midline shift I have personally spent 50 minutes of critical care time in the direct management of this patient. This is a life/limb threatening event. This includes time spent evaluating patient, direct bedside care, chart review, placing orders, interpretation of diagnostic studies, discussion with consultants, patient, and/or family members regarding treatment decisions, as well as other required patient management activities. This time is exclusive of all separately billable procedures, and teaching time and separate from and in addition to any other critical care service time. Subjective Caveat: History limited by Altered Mental Status. Mr. Vinson needed re-direction to stay in bed, but wasn't combative or required restraints. No signs of bleed reported. Review of Systems Review of Systems: Unobtainable due to reduced consciousness Physical Exam Constitutional: + altered mental status Eyes: EOM intact bilaterally Neck: trachea midline Respiratory: no respiratory distress and does not use accessory muscles Auscultation: + diminished lung sounds (at bases) Cardiovascular: Rate/Rhythm: regular rate and regular rhythm Extremities: no pedal edema Gastrointestinal (Abdomen): Percussion/Palpation: abdomen soft; abdomen nontender Musculoskeletal: left lateral forehead hematoma; right parietal ledy intact without signs of infection. Neurologic: moves all extremities and + confused Psychiatric: Orientation: alert, oriented to person and oriented to time; + not oriented to place Results & Data Vital Signs (Past 12 Hours) Vital Signs Temp Pulse Resp BP Pulse Ox 03/18/ 06:30 95 H 16 116/73 100 07/30/19 06:16 106 H 17 91/73 L 89 L 03/18/19 06:01 89 17 81/56 L 99 03/18/19 05:31 93 H 20 138/86 100 03/18/19 05:15 90 17 108/71 100 03/18/19 05:00 91 H 17 99/73 L 100 03/18/19 04:47 91 H 17 112/69 100 03/18/19 04:31 90 18 123/82 100 03/18/19 04:16 96 H 23 93/60 L 100 03/18/19 04:00 91 H 18 103/67 100 03/18/19 03:46 92 H 18 122/72 100 03/18/19 03:32 91 H 18 96/61 L 99 03/18/19 03:15 92 H 19 140/122 H 98 03/18/19 03:01 93 H 18 134/53 L 100 03/18/19 02:45 94 H 19 134/87 100 03/18/19 02:30 93 H 18 124/90 100 03/18/19 02:15 93 H 29 H 113/52 L 100 03/18/19 02:12 95 H 20 94/49 L 100 03/18/19 02:04 105 H 24 79/54 L 100 03/18/19 02:02 103 H 27 H 72/37 L 99 03/18/19 01:01 94 H 19 111/86 100 03/18/19 00:07 37.1 C 92 H 20 110/65 03/17/19 23:36 96 H 21 128/62 03/17/19 23:15 91 H 20 109/62 99 03/17/19 23:03 92 H 03/17/19 23:00 93 H 22 127/75 90 03/17/19 22:15 92 H 21 113/81 03/17/19 22:07 96 H 22 154/90 H 03/17/19 22:00 109 H 21 03/17/19 21:31 89 18 108/83 03/17/19 21:30 89 21 03/17/19 21:16 92 H 23 117/82 03/17/19 21:01 90 20 124/75 03/17/19 21:00 91 H 20 03/17/19 20:46 89 19 124/92 97 03/17/19 20:38 101 H 23 102/68 98 03/17/19 20:30 90 19 03/17/19 20:07 86 18 98 03/17/19 20:06 37.0 C 85 18 140/100 03/17/19 20:00 90 21 PG Care Time/CCT Total # of Minutes Spent Total Time Spent with Patient: Total time spent is greater than 50% in coordination of care (as documented) at patient's floor/unit and/or counseling patient: Resident Activity Tracking Resident Involvement: Resident Care Provided Care Provided: Adult Hospital Medicine (ICU)
[2019-03-18] MEDS: DOCUSATE SODIUM 100 MG CAP PO SCH (08:19)
--- NOTE | 2019-03-18 08:37 | Nephrology Consultation ---
Date of Consultation March 18, 2019 Assessment & Plan (1) Acute renal failure superimposed on stage 3 chronic kidney disease: Baseline creatinine as recently as 03/04 was 1.7; range mid January - mid February 1.6-2.0. Presenting creatinine here 4.6, improved to 2.6 this am w/ acceptable chemistries. No evidence on UA of uti or recurrent GN. Hemodynamics have improved. Mild anemia > not in transfusion range. Appears to have been prerenal ANUJA at this point w/ decreased po intake and no oliguria and significant recovery by this am w/ IVF. Question of his longer term nutritional intake will be a concern/ is being discussed by rounding teams w/ family -check vanco level prior to dosing next dose if further doses given>> random level 16 this am -f/u pending cxs; remains on cefepime -added CK to labs though no trauma hx here or new meds -cont to hold bp meds as below -daily bmp Present on Admission?: Yes (2) Hypotension: had been on normosol at 125 ml hourly this am, off now. also was pressor dependent for about 15 hours until about 0700 today; maintaining sbp off of these now; no bp meds on board currently. TTE reassuring. Monitor; cont to observe. Had been on losartan, torsemide, coreg prior to admission > cont to hold these -agree w/ Dr Saeed's plan for D51/2NS Present on Admission?: Yes History of Present Illness Requesting Physician: Dr Acosta Attending Physician: Albert Saeed MD History of Present Illness 73 y/o M whom I am asked to see for ANUJA on CKD was admitted to ICU from [facility] yesterday w/ concern for sepsis after late January 2019 craniotomy to evacuate subdural hematoma. PMH includes CAD, valvular heart disease (moderate ), htn, microscopic polyangitis in 2008 s/p cytoxan/steroids and CKD3, HL, hypothyroid. Pt had 2 falls in 01/2019; only after second fall did he present to [facility] from where he was flown to [facility] [place] [place] for above procedure. He has been at [facility] since 02/09. He is DNR/DNI code status. His creatinine on presentation yesterday was 4.6, improved to 2.6 today in AM w/ fluid resuscitation. Not clear how much he was eating/drinking at rehab. He has per report from other physicians been quite confused since the head injury. He follows w/ my parter Dr Chavarria in CKD clinic in [place]. His baseline creatinine is mid ones to 2, as recently as mid January to mid February 2019. No acute/ new issues last OV though worsening respiratory status and higher diuretic requirements ( x mos ) were noted. Blood and urine cxs are ngtd. he has been quite agitated and confused all day. He was evaluated by speech today and is not currently a candidate for po intake Allergies Allergy/AdvReac Type Severity Reaction Status Date / Time Penicillins Allergy Verified 03/17/19 11:32 Sulfa (Sulfonamide Allergy Verified 03/17/19 11:32 Antibiotics) Home Medications Home Medications Medication Instructions Recorded Confirmed Type acetaminophen [Tylenol Extra 500 mg PO Q4H PRN 03/17/19 03/17/19 History Strength] albuterol sulfate 180 mcg INHALATION Q4H PRN 03/17/19 03/17/19 History allopurinol 300 mg PO DAILY 03/17/19 03/17/19 History carvedilol 12.5 mg PO BIDM 03/17/19 03/17/19 History clonazepam 0.5 mg PO BID 03/17/19 03/17/19 History docusate sodium [Colace] 100 mg PO BID 03/17/19 03/17/19 History enoxaparin [Lovenox] 30 mg SUBCUT Q12H 03/17/19 03/17/19 History fluticasone furoate-vilanterol 1 inh INHALATION DAILY 03/17/19 03/17/19 History isosorbide mononitrate 60 mg PO QAM 03/17/19 03/17/19 History levothyroxine 88 mcg PO 6XWK 03/17/19 03/17/19 History levothyroxine 176 mcg PO WK 03/17/19 03/17/19 History losartan 50 mg PO Q12 03/17/19 03/17/19 History melatonin 3 mg PO HS 03/17/19 03/17/19 History nitroglycerin [Nitrostat] 0.4 mg SUBLINGUAL Q5M PRN 03/17/19 03/17/19 History oxycodone 5 mg PO DAILY PRN 03/17/19 03/17/19 History pantoprazole 40 mg PO QAM 03/17/19 03/17/19 History paroxetine HCl 10 mg PO HS 03/17/19 03/17/19 History torsemide 100 mg PO DAILY 03/17/19 03/17/19 History umeclidinium 1 inh INHALATION DAILY 03/17/19 03/17/19 History Patient History Medical History Altered mental status (Acute) COPD (chronic obstructive pulmonary disease) Myocardial infarction CKD (chronic kidney disease) GERD (gastroesophageal reflux disease) Hyperthyroidism Surgical History Aortic valve replaced Hx of CABG Family History Other No pertinent family history Social History Preferred Language: Khmer Communication Ability: Impaired Visual Impairment: No Limitations Hearing Ability: Normal 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 Other Information That Helps Us Care for You: No Feels Safe at Home: Yes Safety Concerns: Feels Safe At This Time Smoking Status: Former smoker Hx Alcohol Use: No Hx Substance Use: No Review of Systems Review of Systems: Unobtainable due to cognitive status pt denies sob, denies current muskuloskeletal pain or montiel, no n/v Physical Exam Constitutional: well developed, well nourished and + obese agitated; states " I have to get out of this bed so I can get a coffee" Eyes: EOM intact bilaterally ENMT: Ears: no external ear abnormality Nose: no external nose abnormality Mouth: + dry oral mucous membranes Neck: no nuchal rigidity Respiratory: normal respiratory effort Auscultation: + diminished lung sounds Cardiovascular: Rate/Rhythm: regular rhythm and + tachycardic Extremities: no edema Gastrointestinal (Abdomen): Inspection/Auscultation: normal bowel sounds Percussion/Palpation: abdomen soft; abdomen nontender Musculoskeletal: Extremities: strength 5/5 throughout Skin: no rashes, warm and dry contusion L frontotemporal remote/healing; c/d/i stapled craniotomy wound R posterolateral skull Neurologic: coles, fluent speech, no tremor Psychiatric: Orientation: alert and oriented to person Eye Contact: + fair eye contact Speech: normal rate/rhythm/volume of speech Affect: + constricted affect Mood: + anxious mood Cognition: language grossly intact; + recent memory not intact and + attention not intact Estimated Intelligence: consistent with education level Insight: + limited insight Judgement: + limited judgement Genitourinary: no magaña Results & Data Vital Signs (Past 12 Hours) Vital Signs Temp Pulse Resp BP Pulse Ox 03/18/19 06:30 95 H 16 116/73 100 03/18/19 06:16 106 H 17 91/73 L 89 L 03/18/19 06:01 89 17 81/56 L 99 03/18/19 05:31 93 H 20 138/86 100 03/18/19 05:15 90 17 108/71 100 03/18/19 05:00 91 H 17 99/73 L 100 03/18/19 04:47 91 H 17 112/69 100 03/18/19 04:31 90 18 123/82 100 03/18/19 04:16 96 H 23 93/60 L 100 03/18/19 04:00 91 H 18 103/67 100 03/18/19 03:46 92 H 18 122/72 100 03/18/19 03:32 91 H 18 96/61 L 99 03/18/19 03:15 92 H 19 140/122 H 98 03/18/19 03:01 93 H 18 134/53 L 100 03/18/19 02:45 94 H 19 134/87 100 03/18/19 02:30 93 H 18 124/90 100 03/18/19 02:15 93 H 29 H 113/52 L 100 03/18/19 02:12 95 H 20 94/49 L 100 03/18/19 02:04 105 H 24 79/54 L 100 03/18/19 02:02 103 H 27 H 72/37 L 99 03/18/19 01:01 94 H 19 111/86 100 03/18/19 00:07 37.1 C 92 H 20 110/65 03/17/19 23:36 96 H 21 128/62 03/17/19 23:15 91 H 20 109/62 99 03/17/19 23:03 92 H 03/17/19 23:00 93 H 22 127/75 90 03/17/19 22:15 92 H 21 113/81 03/17/19 22:07 96 H 22 154/90 H 03/17/19 22:00 109 H 21 03/17/19 21:31 89 18 108/83 03/17/19 21:30 89 21 03/17/19 21:16 92 H 23 117/82 03/17/19 21:01 90 20 124/75 03/17/19 21:00 91 H 20 03/17/19 20:46 89 19 124/92 97 03/17/19 20:38 101 H 23 102/68 98 03/17/19 20:30 90 19 Laboratory Results Abnormal lab results 03/17/19 03/17/19 03/17/19 Range/Units 10:37 10:37 10:39 WBC (4.8-10.8) K/uL RBC 3.13 L (4.7-6.1) M/uL Hgb 9.4 L (14.0-18.0) g/dL POC Hgb 8.5 L (14.0-18.0) g/dl Hct 29.3 L (42-52) % POC Hct 25 L (42-52) % RDW Std Deviation 64.5 H (36.4-46.3) fL RDW Coeff of Stephane 19.2 H (11.5-14.5) % MPV 10.9 H (7.4-10.4) fL Lymph # (Auto) (1.2-3.4) K/uL Absolute Nucleated RBC 0.04 H (0-0) K/uL POC Sodium 132 L (135-144) mEq/L Sodium 135 L (136-145) mmol/L POC Chloride 98 L (101-112) mEq/L Chloride 97 L (98-107) mmol/L Anion Gap 12.0 H (3-11) POC Anion Gap 15.0 L (16-25) mmol/L POC BUN 72 H (7-18) mg/dl BUN 67 H (7-18) mg/dl Creatinine 4.18 H (0.6-1.4) mg/dl POC Creatinine 4.6 H* (0.6-1.3) mg/dl Glucose (70-99) mg/dl POC Glucose (70-99) POC Glucose (other) 100 H (70-99) mg/dl Calcium (8.5-10.1) mg/dl Total Protein (6.4-8.2) gm/dl Albumin 2.5 L (3.4-5.0) gm/dl Globulin 4.5 H (2.5-4.0) gm/dl Albumin/Globulin Ratio 0.6 L (0.9-2) Urine Appearance (Clear) Urine RBC (Auto) (0-4) /hpf U Epithel Cells (Auto) (0-5) /lpf Urine Bacteria (Auto) (Negative) 03/17/19 03/17/19 03/17/19 Range/Units 11:05 17:22 20:26 WBC (4.8-10.8) K/uL RBC (4.7-6.1) M/uL Hgb (14.0-18.0) g/dL POC Hgb (14.0-18.0) g/dl Hct (42-52) % POC Hct (42-52) % RDW Std Deviation (36.4-46.3) fL RDW Coeff of Stephane (11.5-14.5) % MPV (7.4-10.4) fL Lymph # (Auto) (1.2-3.4) K/uL Absolute Nucleated RBC (0-0) K/uL POC Sodium (135-144) mEq/L Sodium (136-145) mmol/L POC Chloride (101-112) mEq/L Chloride (98-107) mmol/L Anion Gap (3-11) POC Anion Gap (16-25) mmol/L POC BUN (7-18) mg/dl BUN 58 H (7-18) mg/dl Creatinine 3.31 H D (0.6-1.4) mg/dl POC Creatinine (0.6-1.3) mg/dl Glucose 131 H (70-99) mg/dl POC Glucose 130 H (70-99) POC Glucose (other) (70-99) mg/dl Calcium 8.1 L (8.5-10.1) mg/dl Total Protein (6.4-8.2) gm/dl Albumin (3.4-5.0) gm/dl Globulin (2.5-4.0) gm/dl Albumin/Globulin Ratio (0.9-2) Urine Appearance Cloudy A (Clear) Urine RBC (Auto) 10-30 H (0-4) /hpf U Epithel Cells (Auto) 10-20 H (0-5) /lpf Urine Bacteria (Auto) 1+ H (Negative) 03/18/19 03/18/19 Range/Units 04:57 04:57 WBC 3.67 L (4.8-10.8) K/uL RBC 2.35 L (4.7-6.1) M/uL Hgb 7.9 L (14.0-18.0) g/dL POC Hgb (14.0-18.0) g/dl Hct 23.2 L (42-52) % POC Hct (42-52) % RDW Std Deviation 65.7 H (36.4-46.3) fL RDW Coeff of Stephane 22.1 H (11.5-14.5) % MPV 10.9 H (7.4-10.4) fL Lymph # (Auto) 1.12 L (1.2-3.4) K/uL Absolute Nucleated RBC (0-0) K/uL POC Sodium (135-144) mEq/L Sodium (136-145) mmol/L POC Chloride (101-112) mEq/L Chloride (98-107) mmol/L Anion Gap (3-11) POC Anion Gap (16-25) mmol/L POC BUN (7-18) mg/dl BUN 51 H (7-18) mg/dl Creatinine 2.60 H D (0.6-1.4) mg/dl POC Creatinine (0.6-1.3) mg/dl Glucose 105 H (70-99) mg/dl POC Glucose (70-99) POC Glucose (other) (70-99) mg/dl Calcium 7.9 L (8.5-10.1) mg/dl Total Protein 6.2 L (6.4-8.2) gm/dl Albumin 2.1 L (3.4-5.0) gm/dl Globulin (2.5-4.0) gm/dl Albumin/Globulin Ratio (0.9-2) Urine Appearance (Clear) Urine RBC (Auto) (0-4) /hpf U Epithel Cells (Auto) (0-5) /lpf Urine Bacteria (Auto) (Negative) Diagnostic Findings CT abd/pelvis non con 1. No acute process in the abdomen or pelvis. 2. Minimal incidental findings as noted. 3. 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 CXR 1. Cardiomegaly with pulmonary vascular congestion. 2. No overt pulmonary edema or lobar airspace consolidation. 3. Ill-defined opacities of the bilateral upper lung zones, likely secondary to summation density with pulmonary vasculature. A subtle pneumonitis considered less likely. TTE Echocardiogram in ED 1. Nml LV size; mild concentric LVH 2. LVEF 55-60%; base to mid-inferior, inferolateral hypokinesis 3. RV/RA mildy dilated; mild RV dysfunction 4. No pericardial effusion 5. Atrial septal aneurysm (1) Acute renal failure superimposed on stage 3 chronic kidney disease Acute renal failure type: unspecified Qualified Code(s): N17.9 - Acute kidney failure, unspecified; N18.3 - Chronic kidney disease, stage 3 (moderate) (2) Hypotension Hypotension type: unspecified hypotension type Qualified Code(s): I95.9 - Hypotension, unspecified
[2019-03-18] MEDS ORDERED: PANTOprazole 40 MG TAB PO SCH (09:00)
[2019-03-18] MEDS ORDERED: ALLOPURINOL 300 MG TAB PO SCH (09:00)
--- NOTE | 2019-03-18 09:04 | CT Scan Report ---
CT head/brain wo con CLINICAL HISTORY: 73 years-old Male with subdural hematoma re-evaluation. Follow-up study in a patie nt with history of right-sided subdural hematoma TECHNIQUE: Multiple axial CT images of the head were obtained without contrast. A dose lowering tech nique was utilized adhering to the principles of ALARA. CT DOSE: 1228.53 mGy.cm COMPARISON: Head CT 03/17/2019 at 10:57 AM. FINDINGS: Mixed attenuating subdural collection about the right femoral convexity is unchanged in size measurin g 9 mm. This predominantly appears to be subacute in etiology. Slight sulcal effacement with 4 mm lef tward midline shift appears unchanged. No acute intraparenchymal hemorrhage, territorial infarct or n ew abnormal extra-axial collection identified. No hydrocephalus. Mild age-related involutional change s. Mild degree of patchy white matter hypodensities are suggestive of chronic microvascular ischemic changes. Postoperative changes with 2 tomás holes about the right parietal calvarium redemonstrated. Overlying subcutaneous edema with skin ledy. No acute calvarial fracture. Mastoid air cells and middle ear c avities are clear. Suggested hematoma of the left frontal scalp redemonstrated, 1.5 cm. Orbits are un remarkable. Paranasal sinuses are clear. IMPRESSION: 1. Stable exam with unchanged 9 mm mixed attenuating subdural collection about the right cerebral con vexity suggestive of a subacute subdural hematoma. Again, there is mild sulcal effacement with result ant 4 mm leftward midline shift. 2. Postoperative changes with two tomás holes about the right parietal calvarium redemonstrated. 3. Small left frontal scalp hematoma. The above report was generated using voice recognition software. It may contain grammatical, syntax o r spelling errors. Electronically signed by: Son Charles M.D. 03/18/2019 9:03 AM
[2019-03-18] MEDS ORDERED: CEFEPIME 1,000 MG in SYRINGE 0 ML IV SCH (11:00)
--- NOTE | 2019-03-18 11:28 | Ultrasound Report ---
BILATERAL LOWER EXTREMITY VENOUS DOPPLER HISTORY: fever, off anti-coagulation, ill COMPARISON STUDY: None. FINDINGS: There is normal compressibility, flow, and augmentation within the bilateral lower extremit y deep venous systems. IMPRESSION: No DVT within the right or left lower extremity. Electronically signed by: Gustavo Crowe M.D. 03/18/2019 11:26 AM
[2019-03-18] MEDS: ALBUT/IPRATROP 3MG/0.5MG NEB 3 ML VIAL NEB SCH ×2 (15:10→19:27)
[2019-03-18] MEDS ORDERED: D5W AND 1/2NSS 1,000 ML IV SCH (17:15)
[2019-03-18] MEDS ORDERED: METOPROLOL TARTRATE 1 MG/ML VIAL IV PRN (17:20)
--- NOTE | 2019-03-18 17:25 | Hospitalist Progress Note ---
Date of Service March 18, 2019 Assessment & Plan (1) Acute renal failure superimposed on stage 3 chronic kidney disease: As per History and physical as on 03/17/19 "73-year-old male with a past medical history of coronary artery disease, valvular heart disease, acute [place] x2, hypertension, hyperlipidemia, microscopic polyangiitis, CKD, hypothyroidism, and anxiety presents to the emergency room today from [facility]. He was at [facility] for rehab. He fell in January 2019 but did not go to the emergency room right away. He fell again on the and went to [facility] twice and was flown to [place] twice, the second time he was flown to [place], he went to the OR secondary to the subdural hematoma which was evacuated with a craniotomy. He was discharged to [facility] on the . Yesterday his family visited him and he was off according to the family. He was sleepy and not eating, and labored breathing. Today he was relatively unresponsive, continue to have labored labored breathing and he was sent to our ER for evaluation. In the ER he was hypotensive consistent with septic shock and he will be admitted to the ICU. His family provided the history, but he does follow some commands and he is a little agitated." Acute renal failure on stage 3 chronic kidney disease -in the ICU creatinine declined from 4.18 to 2.6 -patient will continue to received IV hydration as D5 1/2 normal saline at 50 cc/hr for nutrition and hydration -Intensive care unit physician Dr. Joshua discussed with hospitalist that he suspects patient may have been very dehydrated at the physical rehabilitation and may not have been drinking enough water secondary to potential mental status changes from history of sudural hematoma and craniotomy History of subdural hematoma -History of subdural hematoma and evacuation with craniotomy -stable subdural collection on admission CT head -monitor mental status with qshift neurocheck Rule out Dysphagia -aspiration precautions -will have patient more formally assessed for speech and swallowing -will continue hold home oral medications for now and utilize IV formulations if medications are absolutely needed Sepsis was suspected as patient had initial hypotension on admission -on this admission with Tmax of 38.2 celsius -however blood cultures and urine cultures with no growth to date -vancomycin have been stopped -continue cefepime for now, but if no further evidence of underlying infection the cefepime can be de-escalated -hold home dose blood pressure medications of losartan and carvedilol and isosorbide. can slowly resume depending on vital signs History of CAD, CABG, HTN, HLD, aortic valve replacement Echocardiogram in ED 1. Nml LV size; mild concentric LVH 2. LVEF 55-60%; base to mid-inferior, inferolateral hypokinesis 3. RV/RA mildy dilated; mild RV dysfunction 4. No pericardial effusion 5. Atrial septal aneurysm -Holding home anti-hypertensives in until blood pressures are higher hypotension Hypothyroidism -hold home oral levothyroxine for now -check TSH History of COPD -Supplemental O2 -place on duonebs as scheduled -hold home dose inhalers for now Anemia -monitor Hgb Mood -currently mood stable -hold off home paroxetine and clonazepam for now -give IV prn ativan if agitated US LE venous doppler: No DVT within the right or left lower extremity DVT ppx: SCDs Subjective Patient more alert in late afternoon than earlier today. He is able to breathe more comfortably. He was able to talk more and follow my directions better. patient denies chest pain. no abdomen pain. no pain elsewhere. he has been having some cough. patient appears to be oriented that he is in the hospital. he does not have any questions as I explained to him the hospital course so far. He has been NPO so far because before he was not awake enough to have swallowing assessed. Physical Exam Constitutional: comfortable Eyes: PERRL, conjunctivae normal, anicteric sclerae EOM intact bilaterally ENMT: external ear and nose normal, oropharynx normal Neck: normal visual inspection Respiratory: normal respiratory effort Cardiovascular: Rate/Rhythm: regular rate and regular rhythm Gastrointestinal (Abdomen): normal bowel sounds, soft, nontender, no hepatosplenomegaly Musculoskeletal: no cyanosis or clubbing, extremities motor strength 5/5 Head/Neck/Chest: normocephalic and head atraumatic Neurologic: PERRL, EOMI, accommodation nl, no face palsy, no dysarthria CN's II-XI intact bilaterally Psychiatric: A+Ox3, euthymic affect Results & Data Vital Signs (Past 12 Hours) Vital Signs Temp Pulse Pulse Resp BP Pulse Ox 03/18/19 15:15 92 H 16 95 03/18/19 11:57 37.0 C 03/18/19 11:46 99 H 20 109/50 L 91 03/18/19 11:31 102 H 23 121/70 88 L 03/18/19 11:30 104 H 20 86 L 03/18/19 11:16 99 H 18 153/128 H 93 03/18/19 11:00 101 H 21 131/72 93 03/18/19 10:45 102 H 23 105/67 97 03/18/19 10:30 102 H 20 111/71 99 03/18/19 10:15 101 H 22 135/75 03/18/19 10:01 109 H 114/89 96 03/18/19 10:00 118 H 93 03/18/19 09:46 124 H 101/87 89 L 03/18/19 09:31 103 H 127/84 87 L 03/18/19 09:30 103 H 73 L 03/18/19 09:15 100 H 145/76 H 100 03/18/19 09:00 98 H 123/69 97 03/18/19 08:50 103 H 115/68 03/18/19 08:30 99 H 03/18/19 08:15 97 H 105/69 03/18/19 08:00 99 H 97/61 L 03/18/19 07:49 95 H 126/64 91 03/18/19 07:46 95 H 205/123 H 91 03/18/19 07:30 137/81 91 03/18/19 07:15 93 H 125/90 93 03/18/19 07:00 94 H 18 100 03/18/19 06:45 95 H 23 148/82 H 97 03/18/19 06:30 95 H 16 116/73 100 03/18/19 06:16 106 H 17 91/73 L 89 L 03/18/19 06:01 89 17 81/56 L 99 03/18/19 05:31 93 H 20 138/86 100 (1) Acute renal failure superimposed on stage 3 chronic kidney disease Acute renal failure type: unspecified Qualified Code(s): N17.9 - Acute kidney failure, unspecified; N18.3 - Chronic kidney disease, stage 3 (moderate)
[2019-03-18] MEDS ORDERED: ACETAMINOPHEN 65 ML IV PRN (17:30)
[2019-03-18] MEDS ORDERED: LORazepam 0.25 MG/0.5 ML VIAL IV PRN (18:28)
[2019-03-18] MEDS ORDERED: HEPARIN SOD 5,000 UNIT/0.5 ML VIAL SQ SCH (21:00)
[2019-03-18] MEDS ORDERED: CEFEPIME 2,000 MG in SYRINGE 0 ML IV SCH (23:00)
[2019-03-19] MEDS ORDERED: HALOPERIDOL LACTATE 5 MG/ML 1 ML VIAL IM STA ×2 (00:23→01:33)
[2019-03-19] MEDS: HALOPERIDOL LACTATE 5 MG/ML 1 ML VIAL ONE ×2 (00:29→00:31)
[2019-03-19] MEDS ORDERED: METOPROLOL TARTRATE 1 MG/ML VIAL IV STA (01:33)
--- NOTE | 2019-03-19 06:33 | CT Scan Report ---
CT head/brain wo con CLINICAL HISTORY: Acute change in mental status. Subdural hematoma. COMPARISON STUDY: 03/18/2019 TECHNIQUE: Axial CT of the brain is performed from the vertex to the skull base. IV contrast was not administered for this examination. A dose lowering technique was utilized adhering to the principles of ALARA. CT DOSE: FINDINGS: The study is compromised due to motion artifact. There is a right convexity subdural collection measu ring 1 cm in maximal thickness. This appears minimally larger than on the prior study. Two Right-sided tomás holes are visualized. There is evidence for scalp swelling. There is no evidence for acute intraparenchymal hemorrhage. There is mild right-sided cortical effacement. There is 4 mm of [id number] midline shift. There is no CT evidence of acute cortical infarction. There are minimal white matter hypodensities likely on a small vessel basis. There is no evidence of pathologic ventricular dilatation. There is no evidence of acute sinusitis IMPRESSION: 1. Technically limited study secondary to motion artifact 2. Postsurgical changes in the right 3. Right convexity subdural collection, minimally larger than on the preceding study. There is persis tent associated right sided cortical effacement. There is stable 4 mm right to left midline shift. Electronically signed by: Rafiq Tucker M.D. 03/19/2019 6:32 AM
--- NOTE | 2019-03-19 08:07 | Discharge Summary ---
Date of Service March 19, 2019 Admission HPI Per Admitting Provider 73-year-old male with a past medical history of coronary artery disease, valvular heart disease, acute DC x2, hypertension, hyperlipidemia, microscopic polyangiitis, CKD, hypothyroidism, and anxiety presents to the emergency room today from [facility]. He was at [facility] for rehab. He fell in January 2019 but did not go to the emergency room right away. He fell again on the and went to [facility] twice and was flown to [place] twice, the second time he was flown to [place], he went to the OR secondary to the subdural hematoma which was evacuated with a craniotomy. He was discharged to [facility] on the . Yesterday his family visited him and he was off according to the family. He was sleepy and not eating, and labored breathing. Today he was relatively unresponsive, continue to have labored labored breathing and he was sent to our ER for evaluation. In the ER he was hypotensive consistent with septic shock and he will be admitted to the ICU. His family provided the history, but he does follow some commands and he is a little agitated. Admission Exam (Per Admitting) Constitutional Physical Exam Gen-AAO x 1, NAD, Afebrile, agitated, obese Head-craniotomy holes with bleeding, EOMI, PERRLA, Anicteric Sclera, No Posterior Pharyngeal Erythema Neck-Supple, No JVD, No Thyromegaly, No Masses, No LAD, No Bruits Lungs-Clear to Auscultation Bilaterally, No Rales, No Rhonchi, No Wheezing, No Crepitus Chest-No S4, +S1, +S2, No S3, No Murmurs, No Rubs, No Gallops, No Ectopy Abdomen-Soft, Bowel Sounds Present, Non Tender, Non Distended, No Hepatomegaly, No Splenomegaly, No Palpable Masses, No Rebound, No Rigidity, No Guarding Musculoskeletal-Full Range of Motion Bilaterally, No CVAT Extremities-No Cyanosis, No Clubbing, No Edema Nuero-Cranial Nerves II-XII grossly intact, Motor WNL, DTRs WNL, Strength WNL, Non Focal Psych-agitated Discharge Data Consultations 03/17/19 13:01 ED Decision to Admit Stat 03/17/19 13:22 Consult Case Management - Discharge Planning Routine 03/17/19 13:28 Consult General Scrap Worker Routine 03/17/19 18:34 Consult Nephrology Routine Hospital Course (1) Acute renal failure superimposed on stage 3 chronic kidney disease: Was Notified that patient is agitated and was given ativan and it got worse and was tachycardic and tachyapneic. Came and saw the patient.Ekg showed sinus tachycardia. Saturating ok on oxymask 3lts. BP ok. Slight dilatation of right pupil. Don't know the baseline.Ordered Stat CT head, im 2.5mg haldol( no qt prolongation on ekg) and iv 2.5mg lopressor. After sometime another round of lopressor and haldol same dose and route given. Came and saw patient again. Seemed less agitated and HR improving. And then after sometime got a call that patient heart rate went down and became asystole and patient at 3:24 am March [address] scan prior to this event and official reporting says though not a good study it was not significantly different from prior study except mentioning that right convex sub dural thickness is 1cm whereas prior it was 0.9mm thickness. Possible cause of demise unclear. Cause on certificate: sepsis, Dre, Subdural hematoma, COPD. Called and Notified Son. Exam: Ge unresponsive Pupils dilated fixed and non reactive to light( right pupil slightly more dilated) Neck No carotid pulse Cvs No heart sounds on ascultation RS no spontaneous breathing no breath sounds heard on ascultation Asystole on monitor at 3:24am. Patient pronounced at 3:24am on March 19 2019. Hospital course so far prior to the event as documented by : Assessment & Plan (1) Acute renal failure superimposed on stage 3 chronic kidney disease: As per History and physical as on 03/17/19 "73-year-old male with a past medical history of coronary artery disease, valvular heart disease, acute DC x2, hypertension, hyperlipidemia, microscopic polyangiitis, CKD, hypothyroidism, and anxiety presents to the emergency room today from [facility]. He was at [facility] for rehab. He fell in January 2019 but did not go to the emergency room right away. He fell again on the and went to [facility] twice and was flown to [place] twice, the second time he was flown to [place], he went to the OR secondary to the subdural hematoma which was evacuated with a craniotomy. He was discharged to [facility] on the . Yesterday his family visited him and he was off according to the family. He was sleepy and not eating, and labored breathing. Today he was relatively unresponsive, continue to have labored labored breathing and he was sent to our ER for evaluation. In the ER he was hypotensive consistent with septic shock and he will be admitted to the ICU. His family provided the history, but he does follow some commands and he is a little agitated." Acute renal failure on stage 3 chronic kidney disease -in the ICU creatinine declined from 4.18 to 2.6 -patient will continue to received IV hydration as D5 1/2 normal saline at 50 cc/hr for nutrition and hydration -Intensive care unit physician Dr. Joshua discussed with hospitalist that he suspects patient may have been very dehydrated at the physical rehabilitation a nd may not have been drinking enough water secondary to potential mental status changes from history of sudural hematoma and craniotomy History of subdural hematoma -History of subdural hematoma and evacuation with craniotomy -stable subdural collection on admission CT head -monitor mental status with qshift neurocheck Rule out Dysphagia -aspiration precautions -will have patient more formally assessed for speech and swallowing -will continue hold home oral medications for now and utilize IV formulations if medications are absolutely needed Sepsis was suspected as patient had initial hypotension on admission -on this admission with Tmax of 38.2 celsius -however blood cultures and urine cultures with no growth to date -vancomycin have been stopped -continue cefepime for now, but if no further evidence of underlying infection the cefepime can be de-escalated -hold home dose blood pressure medications of losartan and carvedilol and isosorbide. can slowly resume depending on vital signs History of CAD, CABG, HTN, HLD, aortic valve replacement Echocardiogram in ED 1. Nml LV size; mild concentric LVH 2. LVEF 55-60%; base to mid-inferior, inferolateral hypokinesis 3. RV/RA mildy dilated; mild RV dysfunction 4. No pericardial effusion 5. Atrial septal aneurysm -Holding home anti-hypertensives in until blood pressures are higher hypotension Hypothyroidism -hold home oral levothyroxine for now -check TSH History of COPD -Supplemental O2 -place on duonebs as scheduled -hold home dose inhalers for now Anemia -monitor Hgb Mood -currently mood stable -hold off home paroxetine and clonazepam for now -give IV prn ativan if agitated US LE venous doppler: No DVT within the right or left lower extremity DVT ppx: SCDs
--- NOTE | 2019-03-19 08:27 | Death Summary ---
Date of Service March 19, 2019 Was Notified that patient is agitated and was given ativan and it got worse and was tachycardic and tachyapneic. Came and saw the patient.Ekg showed sinus tachycardia. Saturating ok on oxymask 3lts. BP ok. Slight dilatation of right pupil. Don't know the baseline.Ordered Stat CT head, im 2.5mg haldol( no qt prolongation on ekg) and iv 2.5mg lopressor. After sometime another round of lopressor and haldol same dose and route given. Came and saw patient again. Seemed less agitated and HR improving. And then after sometime got a call that patient heart rate went down and became asystole and patient at 3:24 am March [address] had [address] scan prior to this event and official reporting says though not a good study it was not significantly different from prior study except mentioning that right convex sub dural thickness is 1cm whereas prior it was 0.9mm thickness. Possible cause of demise unclear. Cause on certificate: sepsis, Dre, Subdural hematoma, COPD. Called and Notified Son. Exam: Ge unresponsive Pupils dilated fixed and non reactive to light( right pupil slightly more dilated) Neck No carotid pulse Cvs No heart sounds on ascultation RS no spontaneous breathing no breath sounds heard on ascultation Asystole on monitor at 3:24am. Patient pronounced at 3:24am on March 19 2019. Pronouncement Note Contributing Factors (1) Acute renal failure superimposed on stage 3 chronic kidney disease: Additional Data Attending physician: Albert Saeed MD
[2019-03-23] MEDS ORDERED: LEVOTHYROXINE SODIUM 88 MCG TABLET PO SCH (06:30)
== END 2019-03-19 05:27 | disposition expired | DRG 871 ==
LOC: ED 10:12 → SUATTDRO 13:23 → 1E 13:23 → 2S 03-18 17:24